=== PATIENT | female | born 1980 | race Two or more races ===

== ENCOUNTER 2024-01-22 19:06 | Emergency (ER) | payer MEDICAID, SELFPAY ==
[2024-01-22 19:29] VITALS: BP 135/87; PULSE 78; RESP 17; TEMP 36.6; O2SAT 97; BMI 43.9
--- NOTE | 2024-01-22 19:52 | EDNOTE_ITS ---
ED Headache RME/HPI General Chief Complaint: Headache Stated Complaint: Headache X 15 days Time Seen by Provider: 01/22/24 19:43 Arrival date/time: 01/22/24 19:06 43F with history of migraines presents to ED with migraine for 15 days. Limitations: no limitations Related Data Home Medications ?Medication ?Instructions ?Recorded ?Confirmed loratadine 10 mg tablet (Claritin) 10 mg PO QDAY PRN Allergic Symptoms 05/08/23 05/08/23 Previous Rx's ?Medication ?Instructions ?Recorded sumatriptan succinate 50 mg tablet See Rx Instructions PO .COMPLEX 11/07/22 (Imitrex) #10 tabs Allergies Allergy/AdvReac Type Severity Reaction Status Date / Time No Known Allergies Allergy Verified 11/28/23 02:43 Review of Systems Review of Systems Systems Reviewed: All systems reviewed, normal except as documented Constitutional Constitutional: Reports system reviewed and no additional complaints, except as documented, Reports as per HPI, Denies fever(s) and Reports headache(s) ENT Ears, Nose, Mouth, and Throat: Denies disequilibrium and Reports headache(s) Cardiovascular Cardiovascular: Reports system reviewed and no additional complaints, except as documented, Denies chest pain and Denies dyspnea Respiratory Respiratory: Reports system reviewed and no additional complaints, except as documented, Denies cough and Denies dyspnea Gastrointestinal Gastrointestinal: Reports system reviewed and no additional complaints, except as documented, Denies abdominal pain, Denies nausea and Denies vomiting Neurologic Neurologic: Reports system reviewed and no additional complaints, except as documented, Denies confusion, Denies disequilibrium and Reports headache(s) Psychiatric Psychiatric: Denies confusion Past Medical History Past Medical History NEUROLOGIC: Positive Neurological Disorders and Migraine; Negative Cerebrovascular Accident or Seizures CARDIAC: Negative Cardiac Disorders, Myocardial Infarction, Hypercholesterolemia, Congestive Heart Failure or Hypertension RESPIRATORY: Negative Chronic Obstructive Pulmonary Disease (COPD) or Asthma GASTROINTESTINAL: Positive Gastrointestinal Disorders and Obesity; Negative Gastrointestinal Bleed, Hemorrhoids or Gastroesophageal Reflux Disease GENITOURINARY: Positive Genitourinary Disorders; Negative Renal Disease (reconstructed ureters) REPRODUCTIVE: Positive Previous Pregnancies MUSCULOSKELETAL: Positive Musculoskeletal Disorders ENDOCRINE: Positive Endocrine Disorders; Negative Diabetes Mellitus Type 1, Diabetes Mellitus Type 2, Hyperthyroidism or Hypothyroidism HEMATOLOGIC: Negative Blood Disorders or Sickle Cell Disease OTHER HISTORY: Negative Autoimmune Disease, Blood Transfusions, Blood Transfusion Reaction, Anesthesia Reactions, MRSA, Clostridium Difficile or Cancer Family History FAMILY HISTORY: Negative Family Respiratory Disorders, Family Cardiac Disorders, Family Gastrointestinal Problems, Family Cancer, Family Surgery or Family Anesthesia Reaction Surgical History SURGICAL: Positive Hysterectomy and Section Social History SMOKING STATUS: Never smoker SECOND HAND EXPOSURE: No SUBSTANCE USE: does not use ED Exam General Limitations: Present no limitations General appearance: Present alert and in no apparent distress Head Head exam: Present atraumatic Eye Eye exam: Present normal appearance, PERRL and EOMI ENT ENT exam: Present normal exam, normal oropharynx and mucous membranes moist Neck Neck exam: Present normal inspection, full ROM and trachea midline Chest Chest inspection: Present normal inspection and symmetric chest wall rise Respiratory Respiratory exam: Present normal lung sounds bilaterally Cardiovascular Cardiovascular exam: Present regular rate, normal rhythm and normal heart sounds Abdominal Exam Abdominal exam: Present soft and normal bowel sounds Extremities Exam Extremities exam: Present normal inspection and full ROM Back Exam Back exam: Present normal inspection and full ROM Neurological Exam Neurological exam: Present alert, oriented X3 and CN II-XII intact Psychiatric Psychiatric exam: Present normal affect and normal mood Skin Skin exam: Present warm, dry, intact and normal color Course Quality Measures none Orders Category Date Time Status Ketorolac Inj [Toradol Inj] Med 01/22/24 19:43 Discontinued 60 mg IM X1 ONE Metoclopramide [Reglan] Med 01/22/24 19:43 Discontinued 10 mg PO X1 ONE Vital Signs Vital signs: Vital Signs Temperature 97.8 F 01/22/24 19:29 Pulse Rate 78 01/22/24 19:29 Respiratory Rate 17 01/22/24 19:29 Blood Pressure 135/87 H 01/22/24 19:29 Pulse Oximetry (%) 97 01/22/24 19:29 Oxygen Delivery Method Room Air 01/22/24 19:29 O2 at 97% on RA and WNLs Headache MDM Narrative MDM Narrative:: 43F with history of migraines presents to ED with migraine for 15 days. Physical exam reveals normal pupil response and EOM. ENT clear. No neck tenderness. ROM intact. Migraine meds helped. Patient data External records reviewed:: [facility] previous records Clinical information provided by:: patient Social determinants that could affect healthcare access:: none Patient has the following chronic illnesses:: migraines How is presenting disease/condition affected by chronic disease/condition?: caused by Evaluation data The following diagnostics were reviewed and interpreted by me:: other (specify) (none) Lab and/or radiology exams considered but not ordered:: not ordered Interpretation Summary: n/a Medications / Prescriptions Medications or Prescriptions considered but not ordered:: ordered Medication administrations:: Medication Administration History Discontinued Medications Ketorolac Tromethamine (Ketorolac Inj 60 Mg/2 Ml Vial) 60 mg IM X1 ONE Stop: 01/22/24 19:44 Last Admin: 01/22/24 19:53 Dose: 60 mg Documented By: DAMARIS Metoclopramide HCl (Metoclopramide 5 Mg Tablet) 10 mg PO X1 ONE Stop: 01/22/24 19:44 Last Admin: 01/22/24 19:54 Dose: 10 mg Documented By: DAMARIS above Consultations Consultation(s) initiated? (list below): No Diagnosis Differential diagnosis headache: migraine, tension headache, subarachnoid hemorrhage, headache, meningitis, sinusitis and postconcussion syndrome Most likely diagnosis given after review of the tests above:: migraine Admission Indicated Admission indicated?: not indicated Admission Request Was there a request for admission?: No Disposition Plan Disposition Plan: Discharge Discharge Attestation Discharge Attestation: The patient and all family members were given an opportunity to ask questions and understood the discharge instructions. Discharge instructions specifically effects, indications for sooner follow up or return to the emergency department, and the expected course of current diagnosis. Patient condition: Stable Discharge Plan Plan Patient Disposition: HOME (Self Care) Disposition Comment: Stable Prescriptions/Referrals Prescriptions/Med Rec: No Action sumatriptan succinate [Imitrex] 50 mg tablet See Rx Instructions .ROUTE .COMPLEX Qty: 10 0RF Rx Instructions: take 1 tab at onset of headache; if no relief may repeat 1 tab after at least 2 hrs; max = 4 tabs/24 hr loratadine [Claritin] 10 mg Tablet 10 mg PO QDAY PRN (Reason: Allergic Symptoms) Hold Instructions: Resume on 05/09/23. Referrals: Stephan Pedraza PA-C [Primary Care Provider] - In 1 week Problem List Clinical Impression: Migraine Patient/Caregiver Discharge Instructions Education Materials: ED Headache, Migraine, Classic Additional Instructions: Please follow-up with PCP within 24-48 hours and return immediately if symptoms worsen. Print Language: Tuvaluan Stand Alone Forms: Patient Portal Info Letter ANTON/BUSTER Supervising Physician ANTON/BUSTER Supervising Physician: Dr. Garcia
[2024-01-22] MEDS: KETOROLAC INJ 60 MG/2 ML VIAL IM (19:53)
[2024-01-22] MEDS: METOCLOPRAMIDE 5 MG TABLET 10 MG PO (19:54)
== END 2024-01-22 21:05 | disposition home or self-care (01) ==
PROVIDERS: Emergency Provider Emergency Medicine; PCP Family Medicine
DX: G43.909 Migraine, unspecified, not intractable, without status migrainosus (principal)
CPT/HCPCS: 96372; 99283; J1885; A9270

== ENCOUNTER 2024-06-17 23:30 | Emergency (ER) | payer MEDICAID, SELFPAY ==
[2024-06-17 23:31] VITALS: BMI 40.2
[2024-06-17 23:40] VITALS: BP 122/87; PULSE 86; RESP 18; TEMP 36.6; O2SAT 95
[2024-06-18] MEDS: FAMOTIDINE 20 MG TABLET 40 MG PO (00:04)
[2024-06-18] MEDS: MG HYD/AL HYD/SIME (Maalox Reg) SUSP 30 ML UDC PO (00:04)
[2024-06-18] MEDS: ONDANSETRON ODT 4 MG TABRAP PO (00:04)
--- NOTE | 2024-06-18 01:43 | EKG_ITS ---
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
[2024-06-18 01:57] VITALS: BP 123/82; PULSE 65; RESP 16; TEMP 36.6; O2SAT 96
[2024-06-18 02:37] LABS: Basophils % (Auto) 1 % (0-2.5); Eosinophils # (Auto) 0.3 Thou/mm3 (0.0-0.5); Eosinophils % (Auto) 5 % (0-10); Hematocrit 42.4 % (36.0-46.0); Hemoglobin 14.3 g/dL (12.0-16.0); Immature Granulocytes % (Auto) 0 % (0-0); Immature Granulocytes Auto 0.02 Thou/mm3 (0.00-0.00); Lymphocytes # (Auto) 1.9 Thou/mm3 (1.0-4.8); Lymphocytes % (Auto) 29 % (10-50); Mean Corpuscular HGB Conc 33.7 g/dl (31.0-37.0); Mean Corpuscular Hemoglobin 30.1 pg (25.0-35.0); Mean Corpuscular Volume 89 fL (80-100); Monocytes # (Auto) 0.6 Thou/mm3 (0.0-0.8); Monocytes % (Auto) 9 % (0-12); Neutrophils # (Auto) 3.7 Thou/mm3 (1.8-7.7); Neutrophils % (Auto) 56 % (37-80); Nucleated Red Blood Cell % 0 /100 WBC (0); Platelet Count 248 Thou/mm3 (140-440); RDW Standard Deviation 43.4 fL (36.4-46.3); Red Blood Count 4.75 Miln/mm3 (4.00-5.20); White Blood Count 6.5 Thou/mm3 (3.6-11.0)
[2024-06-18 02:49] LABS: HCG Qualitative,Urine Negative
[2024-06-18 03:00] LABS: Alanine Aminotransferase 36 U/L (10-49); Albumin, Serum 4.6 gm/dL (3.5-5.0); Albumin/Globulin Ratio 1.5 (1.2-2.2); Alkaline Phosphatase 79 U/L (46-116); Anion Gap 11 (7-16); Aspartate Amino Transferase 19 U/L (0-34); BUN/Creatinine Ratio 22 Ratio (12-20); Bilirubin,Total 0.5 mg/dL (0.3-1.2); Blood Urea Nitrogen 13 mg/dL (9-23); Calcium 9.3 mg/dL (8.3-10.6); Calcium (Corrected) 9.3 mg/dL (8.5-10.1); Carbon Dioxide 26.1 mMol/L (20.0-31.0); Chloride 105 mMol/L (98-107); Creatinine (Component) 0.6 mg/dL (0.6-1.3); Estimated Creatinine Clearance 134.9 mL/min (>60); Globulin 3.1 gm/dL (2.3-3.5); Glucose 131 mg/dL (74-106); Lipase 45 U/L (12-53); Osmolality,Calculated 285 (275-295); Potassium 4.3 mMol/L (3.4-5.1); Sodium 142 mMol/L (136-145); Total Protein 7.7 gm/dL (5.7-8.2); Troponin I < 0.002 ng/mL (0.0-0.045); eGFR > 60 See Note
--- NOTE | 2024-06-18 03:15 | XR_ITS ---
Examination: CT abdomen with intravenous contrast CT pelvis with intravenous contrast 2-D coronal reconstructions 2-D sagittal reconstructions Date and time of exam:June 18, 2024 at 0413 hours Comparison February 13, 2023 INDICATIONS: Epigastric pain nausea vomiting beginning 2 days ago. CTDI: vol (mGy) 16 DLP: (mGycm) 795 Technique: Multiple axial sections of the abdomen and pelvis have been obtained. 64 slice high-resolution scanner used. 3 mm axial sections have been obtained, post intravenous injection 60 cc [id number] 2-D sagittal, coronal reconstructions obtained. Low dose protocols were performed. One or more of the following dose reduction techniques were used; automated exposure control, adjustment of the mA and/or KV according to patient size, use of iterative reconstruction technique. Findings: Diffuse fatty infiltration throughout the liver, irregular liver contour Absent gallbladder Spleen not enlarged No pancreatic mass 18 mm indeterminate left adrenal nodule Minimal wall thickening right pelvicalyceal system and right ureter no ureteral calculi. Normal appendix. Intact bladder. Absent uterus, no pelvic mass Moderate osteopenia IMPRESSION: 18 mm indeterminate left adrenal nodule, recommend elective MRI abdomen adrenal glands follow up, repeat and postcontrast, adrenal gland protocol Suspicious for right urinary tract infection
[2024-06-18 03:25] VITALS: BP 129/85; PULSE 65; RESP 18; TEMP 36.8; O2SAT 100
--- NOTE | 2024-06-18 04:39 | EDNOTE_ITS ---
<Statement entered by Cara Vaughan MD - 06/18/24 19:04> As co-signing physician, I was present and available for consult prn. I concur with the plan and care as documented by the midlevel provider. ED Abdominal Pain RME/HPI General Chief Complaint: Abdominal Pain Stated complaint: EPIGASTRIC PAIN RADIATING TO BACK Time seen by provider: 06/17/24 23:48 Arrival date/time: 06/17/24 23:30 44F with history of cholecystectomy presents to ED with several days of burning epigastric pain and N/V that radiates to back. Limitations: no limitations Related Data Home Medications ?Medication ?Instructions ?Recorded ?Confirmed loratadine 10 mg tablet (Claritin) 10 mg PO QDAY PRN A llergic Symptoms 05/08/23 05/08/23 Held on 05/08/23. Instructions: Resume on 05/09/23. Previous Rx's ?Medication ?Instructions ?Recorded sumatriptan succinate 50 mg tablet See Rx Instructions PO .COMPLEX 11/07/22 (Imitrex) #10 tabs nitrofurantoin 100 mg PO Q12H 5 days #10 ca ps 06/18/24 monohydrate/macrocrystals 100 mg capsule (Macrobid) Allergies Allergy/AdvReac Type Severity Reaction Status Date / Time No Known Allergies Allergy Verified 06/17/24 23:31 Review of Systems Review of Systems Systems Reviewed: All systems reviewed, normal except as documented Constitutional Constitutional: Reports system reviewed and no additional complaints, except as documented, Denies fever(s) and Denies headache(s) ENT Ears, Nose, Mouth, and Throat: Denies disequilibrium and Denies headache(s) Cardiovascular Cardiovascular: Reports system reviewed and no additional complaints, except as documented, Denies chest pain and Denies dyspnea Respiratory Respiratory: Reports system reviewed and no additional complaints, except as documented, Denies cough and Denies dyspnea Gastrointestinal Gastrointestinal: Reports system reviewed and no additional complaints, except as documented, Reports as per HPI, Reports abdominal pain, Reports nausea and Reports vomiting Neurologic Neurologic: Reports system reviewed and no additional complaints, except as documented, Denies confusion, Denies disequilibrium and Denies headache(s) Psychiatric Psychiatric: Denies confusion Past Medical History Past Medical History NEUROLOGIC: Positive Neurological Disorders and Migraine; Negative Cerebrovascular Accident or Seizures CARDIAC: Negative Cardiac Disorders, Myocardial Infarction, Hypercholesterolemia, Congestive Heart Failure or Hypertension RESPIRATORY: Negative Chronic Obstructive Pulmonary Disease (COPD) or Asthma GASTROINTESTINAL: Positive Gastrointestinal Disorders and Obesity; Negative Gastrointestinal Bleed, Hemorrhoids or Gastroesophageal Reflux Disease GENITOURINARY: Positive Genitourinary Disorders; Negative Renal Disease REPRODUCTIVE: Positive Previous Pregnancies MUSCULOSKELETAL: Positive Musculoskeletal Disorders ENDOCRINE: Positive Endocrine Disorders; Negative Diabetes Mellitus Type 1, Diabetes Mellitus Type 2, Hyperthyroidism or Hypothyroidism HEMATOLOGIC: Negative Blood Disorders or Sickle Cell Disease OTHER HISTORY: Negative Autoimmune Disease, Blood Transfusions, Blood Transfusion Reaction, Anesthesia Reactions, MRSA, Clostridium Difficile or Cancer Family History FAMILY HISTORY: Negative Family Respiratory Disorders, Family Cardiac Disorders, Family Gastrointestinal Problems, Family Cancer, Family Surgery or Family Anesthesia Reaction Surgical History SURGICAL: Positive Hysterectomy and Section Social History SMOKING STATUS: Never smoker SECOND HAND EXPOSURE: No SUBSTANCE USE: does not use ED Exam General Limitations: Present no limitations General appearance: Present alert and in no apparent distress Head Head exam: Present atraumatic Eye Eye exam: Present normal appearance, PERRL and EOMI ENT ENT exam: Present normal exam, normal oropharynx and mucous membranes moist Neck Neck exam: Present normal inspection, full ROM and trachea midline Chest Chest inspection: Present normal inspection and symmetric chest wall rise Respiratory Respiratory exam: Present normal lung sounds bilaterally Cardiovascular Cardiovascular exam: Present regular rate, normal rhythm and normal heart sounds Abdominal Exam Abdominal exam: Present soft and normal bowel sounds Abdominal tenderness: Present epigastrium and mild Extremities Exam Extremities exam: Present normal inspection and full ROM Back Exam Back exam: Present normal inspection and full ROM Neurological Exam Neurological exam: Present alert, oriented X3 and CN II-XII intact Psychiatric Psychiatric exam: Present normal affect and normal mood Skin Skin exam: Present warm, dry, intact and normal color Course Quality Measures none Orders Category Date Time Status CT Screening NOW Care 06/18/24 03:15 Completed EKG (ED ONLY) *Do not use* NOW Care 06/18/24 01:44 Completed Insert IV NOW Care 06/18/24 03:[address] abdomen pelvis w con Stat Exams 06/18/24 03:15 Completed EKG (ED Only) Stat Exams 06/18/24 01:43 Draft CBC Stat Lab 06/18/24 02:14 Completed CMP [Comprehensive Metabolic Panel] Stat Lab 06/18/24 02:14 Completed HCG Qualitative,Urine Stat Lab 06/18/24 02:15 Completed Lipase Stat Lab 06/18/24 02:14 Completed Troponin I Stat Lab 06/18/24 02:14 Completed Famotidine [Pepcid] Med 06/17/24 23:48 Discontinued 40 mg PO X1 ONE Ondansetron Odt [Zofran Odt] Med 06/17/24 23:48 Discontinued 4 mg PO X1 ONE mg Hyd/Al Hyd/Mil Susp [Maalox Susp] Med 06/17/24 23:48 Discontinued 30 ml PO X1 ONE Vital Signs Vital signs: Vital Signs Temperature 97.9 F 06/17/24 23:40 Pulse Rate 86 06/17/24 23:40 Respiratory Rate 18 06/17/24 23:40 Blood Pressure 122/87 H 06/17/24 23:40 Pulse Oximetry (%) 95 06/17/24 23:40 Oxygen Delivery Method Room Air 06/17/24 23:40 O2 at 95% on RA and WNLs Abdominal Pain MDM MDM Narrative MDM Narrative:: 44F with history of cholecystectomy presents to ED with several days of burning epigastric pain and N/V that radiates to back. Physical exam reveals mild epigastric tenderness. Patient is afebrile, calm, and alert. No improvement with GI cocktail. No leukocytosis. CMP unremarkable. Lipase normal. EKG is NSR. Trop normal. Patient wants CT. Care signed out to colleague pending CT read and dispo. Patient data External records reviewed:: [facility] previous records Clinical information provided by:: patient Social determinants that could affect healthcare access:: none Patient has the following chronic illnesses:: cholecystectomy How is presenting disease/condition affected by chronic disease/condition?: exacerbated by Evaluation data The following diagnostics were reviewed and interpreted by me:: lab results and radiology exam(s) Lab and/or radiology exams considered but not ordered:: ordered Interpretation Summary: above Medications / Prescriptions Medications or Prescriptions considered but not ordered:: ordered Medication administrations:: Medication Administration History Discontinued Medications Al Hydrox/Mg Hydrox/Simethicone (Mg Hyd/Al Hyd/Mil (Maalox Reg) Susp 30 Ml Udc) 30 ml PO X1 ONE Stop: 06/17/24 23:49 Last Admin: 06/18/24 00:04 Dose: 30 ml Documented By: SIERRA Famotidine (Famotidine 20 Mg Tablet) 40 mg PO X1 ONE Stop: 06/17/24 23:49 Last Admin: 06/18/24 00:04 Dose: 40 mg Documented By: SIERRA Ondansetron HCl (Ondansetron Odt 4 Mg Tabrap) 4 mg PO X1 ONE; Protocol Stop: 06/17/24 23:49 Last Admin: 06/18/24 00:04 Dose: 4 mg Documented By: SIERRA above Consultations Consultation(s) initiated? (list below): No Diagnosis Differential diagnosis abdominal pain: abdominal pain, acute appendicitis, calculus of kidney, constipation, diverticulitis, endometriosis, gastroenteritis, pancreatitis and small bowel obstruction Most likely diagnosis given after review of the tests above:: UTI Admission Indicated Admission indicated?: not indicated Admission Request Was there a request for admission?: No Disposition Plan Disposition Plan: Discharge Discharge Attestation Discharge Attestation: The patient and all family members were given an opportunity to ask questions and understood the discharge instructions. Discharge instructions specifically effects, indications for sooner follow up or return to the emergency department, and the expected course of current diagnosis. Patient condition: Stable Discharge Plan Plan Patient Disposition: HOME (Self Care) Discharge Disposition comment: Stable Prescriptions/Referrals Prescriptions/Med Rec: New nitrofurantoin monohyd/m-cryst [Macrobid] 100 mg capsule 100 mg PO Q12H 5 Days Qty: 10 0RF Rx Instructions: must administer with a meal/food No Action sumatriptan succinate [Imitrex] 50 mg tablet See Rx Instructions .ROUTE .COMPLEX Qty: 10 0RF Rx Instructions: take 1 tab at onset of headache; if no relief may repeat 1 tab after at least 2 hrs; max = 4 tabs/24 hr loratadine [Claritin] 10 mg Tablet 10 mg PO QDAY PRN (Reason: Allergic Symptoms) Referrals: Bijan Still MD [Primary Care Provider] - In 1 week Problem List Clinical Impression: Urinary tract infection Patient/Caregiver Discharge Instructions Education Materials: ED CYSTITIS Female Adult Additional Instructions: Please follow-up with your primary care provider in the next [address] of your abdomen and pelvis showed a urinary tract infection. The CT of your abdomen and pelvis also showed an 18 mm nodule on your adrenal gland. Please follow-up with your primary care provider for further management of this nodule. For any evidence of worsening signs or symptoms return the emergency room immediately Print Language: [place] Stand Alone Forms: Xiao Award Info., Patient Portal Info Letter ANTON/STRIP MILL OPERATOR Supervising Physician PA/STRIP MILL OPERATOR Supervising Physician: Dr. Edwards
--- NOTE | 2024-06-18 05:52 | PRELIM_ITS ---
CT scan of the abdomen and pelvis with intravenous contrast (axial sections with sagittal and coronal reformats). June 18, 2024 0413 hours Clinical History: Epigastric pain and N/V Comparison: None Findings: There is fatty infiltration of the liver. There is slight nodular contour of the liver in keeping with cirrhosis. Gallbladder is surgically absent. The spleen, pancreas, adrenals and left kidney are unremarkable. There is mild right hydronephrosis and the right ureter appears abnormally insert along the anterior aspect of the urinary bladder, possibly this representing postsurgical change to the right ureteral insertion on the urinary bladder. Uterus is surgically absent. There is underdistention of the stomach which limits evaluation. There is no bowel obstruction. There are colonic diverticula without evidence of diverticulitis. Appendix is normal. Tiny fat-containing periumbilical hernia is noted. There is no abdominal or pelvic lymphadenopathy. There is subsegmental atelectasis within the lung bases. There is no acute osseous abnormality. Impression: 1. Fatty liver. Possible cirrhosis. 2. Mild right hydronephrosis. No renal or ureteral calculus. The right ureter appears to abnormally insert along the anterior aspect of the urinary bladder which may represent postsurgical change. Recommend clinical correlation. 3. Prior cholecystectomy and hysterectomy. 4. No bowel obstruction. Colonic diverticula without evidence of diaper to light Speed normal appendix. Report Electronically Signed By: Karlos Colin 06/18/2024 5:51:38 AM [EST]
--- NOTE | 2024-06-18 06:46 | EDNOTE_ITS ---
ED Abdominal Pain RME/HPI General Chief Complaint: Abdominal Pain Stated complaint: EPIGASTRIC PAIN RADIATING TO BACK Time seen by provider: 06/17/24 23:48 Arrival date/time: 06/17/24 23:30 44-year-old female with no known medical history presents to the emergency room with a chief complaint of epigastric 7 out of 10 abdominal pain that radiates to her back x 2 days Source: patient Mode of arrival: ambulatory Limitations: no limitations Related Data Home Medications ?Medication ?Instructions ?Recorded ?Confirmed loratadine 10 mg tablet (Claritin) 10 mg PO QDAY PRN A llergic Symptoms 05/08/23 05/08/23 Held on 05/08/23. Instructions: Resume on 05/09/23. Previous Rx's ?Medication ?Instructions ?Recorded sumatriptan succinate 50 mg tablet See Rx Instructions PO .COMPLEX 11/07/22 (Imitrex) #10 tabs nitrofurantoin 100 mg PO Q12H 5 days #10 ca ps 06/18/24 monohydrate/macrocrystals 100 mg capsule (Macrobid) Allergies Allergy/AdvReac Type Severity Reaction Status Date / Time No Known Allergies Allergy Verified 06/17/24 23:31 Review of Systems Review of Systems Systems Reviewed: All systems reviewed, normal except as documented Constitutional Constitutional: Reports system reviewed and no additional complaints, except as documented, Denies fatigue, Denies fever(s), Denies headache(s) and Denies weakness Eyes Eyes: Reports system reviewed and no additional complaints, except as documented, Denies blurry vision and Denies change in vision ENT Ears, Nose, Mouth, and Throat: Reports system reviewed and no additional complaints, except as documented, Denies otalgia, Denies headache(s), Denies nasal congestion, Denies throat swelling and Denies vertigo Cardiovascular Cardiovascular: Reports system reviewed and no additional complaints, except as documented, Denies chest pain, Denies dyspnea and Denies dyspnea on exertion Respiratory Respiratory: Reports system reviewed and no additional complaints, except as documented, Denies chest congestion, Denies cough, Denies dyspnea, Denies dyspnea on exertion and Denies wheezing Gastrointestinal Gastrointestinal: Reports system reviewed and no additional complaints, except as documented, Denies abdominal pain, Denies cramping, Denies nausea and Denies vomiting Genitourinary Genitourinary: Reports system reviewed and no additional complaints, except as documented Musculoskeletal Musculoskeletal: Reports system reviewed and no additional complaints, except as documented and Denies back pain Integumentary/Breasts Skin/Breast: Reports system reviewed and no additional complaints, except as documented and Denies wounds Neurologic Neurologic: Reports system reviewed and no additional complaints, except as documented, Denies confusion, Denies headache(s), Denies lack of coordination, Denies vertigo and Denies weakness Psychiatric Psychiatric: Reports system reviewed and no additional complaints, except as documented, Denies anxiety, Denies confusion, Denies depression, Denies paranoia, Denies suicidal ideation and Denies tactile hallucinations Endocrine Endocrine: Reports system reviewed and no additional complaints, except as documented and Denies fatigue Hematologic/Lymphatic Hematologic/Lymphatic: Reports system reviewed and no additional complaints, except as documented and Denies lymphadenopathy Allergic/Immunologic Allergic/Immunologic: Reports system reviewed and no additional complaints, except as documented, Denies throat swelling, Denies urticaria and Denies wheezing ED Exam General Limitations: Present no limitations General appearance: Present alert and in no apparent distress Head Head exam: Present atraumatic Eye Eye exam: Present normal appearance, PERRL and EOMI ENT ENT exam: Present normal exam, normal oropharynx and mucous membranes moist Neck Neck exam: Present normal inspection, full ROM and trachea midline Chest Chest inspection: Present normal inspection and symmetric chest wall rise Respiratory Respiratory exam: Present normal lung sounds bilaterally Cardiovascular Cardiovascular exam: Present regular rate, normal rhythm and normal heart sounds Abdominal Exam Abdominal exam: Present soft, tenderness and normal bowel sounds; Absent Coombs's sign or tenderness at McBurney's Point Abdominal tenderness: Present epigastrium and mild Extremities Exam Extremities exam: Present normal inspection and full ROM Back Exam Back exam: Present normal inspection, full ROM and tenderness Neurological Exam Neurological exam: Present alert, oriented X3 and CN II-XII intact Psychiatric Psychiatric exam: Present normal affect and normal mood Skin Skin exam: Present warm, dry, intact and normal color Course Quality Measures none Orders Category Date Time Status CT Screening NOW Care 06/18/24 03:15 Active EKG (ED ONLY) *Do not use* NOW Care 06/18/24 01:44 Completed Insert IV NOW Care 06/18/24 03:[address] abdomen pelvis w con Stat Exams 06/18/24 03:15 Completed EKG (ED Only) Stat Exams 06/18/24 01:43 Ordered CBC Stat Lab 06/18/24 02:14 Completed CMP [Comprehensive Metabolic Panel] Stat Lab 06/18/24 02:14 Completed HCG Qualitative,Urine Stat Lab 06/18/24 02:15 Completed Lipase Stat Lab 06/18/24 02:14 Completed Troponin I Stat Lab 06/18/24 02:14 Completed Famotidine [Pepcid] Med 06/17/24 23:48 Discontinued 40 mg PO X1 ONE Ondansetron Odt [Zofran Odt] Med 06/17/24 23:48 Discontinued 4 mg PO X1 ONE mg Hyd/Al Hyd/Mil Susp [Maalox Susp] Med 06/17/24 23:48 Discontinued 30 ml PO X1 ONE Vital Signs Vital signs: Vital Signs Temperature 97.9 F 06/17/24 23:40 Pulse Rate 86 06/17/24 23:40 Respiratory Rate 18 06/17/24 23:40 Blood Pressure 122/87 H 06/17/24 23:40 Pulse Oximetry (%) 95 06/17/24 23:40 Oxygen Delivery Method Room Air 06/17/24 23:40 O2 saturation 95% within normal limits Abdominal Pain MDM MDM Narrative MDM Narrative:: 44-year-old female with no known medical history presents to the emergency room with a chief complaint of epigastric 7 out of 10 abdominal pain that radiates to her back x 2 days Patient is hemodynamically stable and in no apparent distress. The patient is afebrile not tachycardic not tachypneic Physical examination shows 7 out of 10 epigastric abdominal pain that radiates to her mid back. A CT of the abdomen and pelvis was completed and was negative for any acute findings. There was an 18 mm incidental finding to the adrenal gland. The patient was educated to follow-up with her primary care provider for further management of this incidental finding. CT also shows suspicious for urinary tract infection. Antibiotics are sent to the patient's pharmacy Patient was discharged and educated to follow-up with primary care provider in the next 24 to 48 hours and return to the emergency room for any evidence of worsening signs or symptoms Patient data External records reviewed:: [facility] previous records Clinical information provided by:: patient Social determinants that could affect healthcare access:: none Patient has the following chronic illnesses:: No chronic illness How is presenting disease/condition affected by chronic disease/condition?: no chronic disease Evaluation data The following diagnostics were reviewed and interpreted by me:: lab results and radiology exam(s) Lab and/or radiology exams considered but not ordered:: Labs and radiology exams considered and ordered Interpretation Summary: CT abdomen and pelvis-Findings: Diffuse fatty infiltration throughout the liver, irregular liver contour Absent gallbladder Spleen not enlarged No pancreatic mass 18 mm indeterminate left adrenal nodule Minimal wall thickening right pelvicalyceal system and right ureter no ureteral calculi. Normal appendix. Intact bladder. Absent uterus, no pelvic mass Moderate osteopenia IMPRESSION: 18 mm indeterminate left adrenal nodule, recommend elective MRI abdomen adrenal glands follow up, repeat and postcontrast, adrenal gland protocol Suspicious for right urinary tract infection Medications / Prescriptions Medications or Prescriptions considered but not ordered:: Medication given Medication administrations:: Medication Administration History Discontinued Medications Al Hydrox/Mg Hydrox/Simethicone (Mg Hyd/Al Hyd/Mil (Maalox Reg) Susp 30 Ml Udc) 30 ml PO X1 ONE Stop: 06/17/24 23:49 Last Admin: 06/18/24 00:04 Dose: 30 ml Documented By: SIERRA Famotidine (Famotidine 20 Mg Tablet) 40 mg PO X1 ONE Stop: 06/17/24 23:49 Last Admin: 06/18/24 00:04 Dose: 40 mg Documented By: SIERRA Ondansetron HCl (Ondansetron Odt 4 Mg Tabrap) 4 mg PO X1 ONE; Protocol Stop: 06/17/24 23:49 Last Admin: 06/18/24 00:04 Dose: 4 mg Documented By: SIERRA Medication given Consultations Consultation(s) initiated? (list below): No Diagnosis Differential diagnosis abdominal pain: abdominal pain, acute appendicitis, gastroenteritis, pancreatitis, small bowel obstruction and other (Gastritis) Most likely diagnosis given after review of the tests above:: Gastritis Admission Indicated Admission indicated?: not indicated Admission Request Was there a request for admission?: No Disposition Plan Disposition Plan: Discharge Discharge Attestation Discharge Attestation: The patient and all family members were given an opportunity to ask questions and understood the discharge instructions. Discharge instructions specifically effects, indications for sooner follow up or return to the emergency department, and the expected course of current diagnosis. Patient condition: Stable Discharge Plan Plan Patient Disposition: HOME (Self Care) Discharge Disposition comment: Stable Prescriptions/Referrals Prescriptions/Med Rec: New nitrofurantoin monohyd/m-cryst [Macrobid] 100 mg capsule 100 mg PO Q12H 5 Days Qty: 10 0RF Rx Instructions: must administer with a meal/food No Action sumatriptan succinate [Imitrex] 50 mg tablet See Rx Instructions .ROUTE .COMPLEX Qty: 10 0RF Rx Instructions: take 1 tab at onset of headache; if no relief may repeat 1 tab after at least 2 hrs; max = 4 tabs/24 hr loratadine [Claritin] 10 mg Tablet 10 mg PO QDAY PRN (Reason: Allergic Symptoms) Referrals: Bijan Still MD [Primary Care Provider] - In 1 week Problem List Clinical Impression: Urinary tract infection Patient/Caregiver Discharge Instructions Education Materials: ED CYSTITIS Female Adult Additional Instructions: Please follow-up with your primary care provider in the next [address] of your abdomen and pelvis showed a urinary tract infection. The CT of your abdomen and pelvis also showed an 18 mm nodule on your adrenal gland. Please follow-up with your primary care provider for further management of this nodule. For any evidence of worsening signs or symptoms return the emergency room immediately Print Language: Irish Stand Alone Forms: [employer] Award Info., Patient Portal Info Letter PA/TEACHER LIP READING Supervising Physician PA/BUSTER Supervising Physician: Dr. Edwards
[2024-06-18 06:54] VITALS: BP 122/72; PULSE 76; RESP 16; TEMP 36.7; O2SAT 98
== END 2024-06-18 06:55 | disposition home or self-care (01) ==
PROVIDERS: Physician Assistant; Emergency Provider Emergency Medicine; PCP Family Medicine
DX: N39.0 Urinary tract infection, site not specified (principal); E27.8 Other specified disorders of adrenal gland; R10.13 Epigastric pain
CPT/HCPCS: 36415; 74177; 80053; 81025; 83690; 84484; 85025; 93005; 99285; A4649; Q0162; Q9967; A9270

== ENCOUNTER 2024-09-07 18:16 | Emergency (ER) | payer MEDICAID, SELFPAY ==
[2024-09-07 18:40] VITALS: BP 111/73; PULSE 62; RESP 16; TEMP 36.9; O2SAT 97; BMI 39.9
--- NOTE | 2024-09-07 19:12 | EDNOTE_ITS ---
<Statement entered by Cara Vaughan MD - 09/07/24 20:07> As co-signing physician, I was present and available for consult prn. I concur with the plan and care as documented by the midlevel provider. ED Skin Abcess FB-RME/HPI General Chief complaint: General Adult/Misc Complain Stated complaint: Hemorrhoids X 8 days Time Seen by Provider: 09/07/24 19:03 Arrival date/time: 09/07/24 18:16 44F with history of hemorrhoids presents to ED with flare of 1 week. Patient was prescribed a steroid cream, but wants something for her pain. There is some bleeding with it. Limitations: no limitations Related Data Home Medications ?Medication ?Instructions ?Recorded ?Confirmed loratadine 10 mg tablet (Claritin) 10 mg PO QDAY PRN A llergic Symptoms 05/08/23 05/08/23 Held on 05/08/23. Instructions: Resume on 05/09/23. Previous Rx's ?Medication ?Instructions ?Recorded sumatriptan succinate 50 mg tablet See Rx Instructions PO .COMPLEX 11/07/22 (Imitrex) #10 tabs lidocaine 5 % topical ointment 1 applic topical BID HI N pain #30 09/07/24 grams Allergies Allergy/AdvReac Type Severity Reaction Status Date / Time No Known Allergies Allergy Verified 09/07/24 18:19 Review of Systems Review of Systems Systems Reviewed: All systems reviewed, normal except as documented Constitutional Constitutional: Reports system reviewed and no additional complaints, except as documented, Denies fever(s) and Denies headache(s) ENT Ears, Nose, Mouth, and Throat: Denies disequilibrium and Denies headache(s) Cardiovascular Cardiovascular: Reports system reviewed and no additional complaints, except as documented, Denies chest pain and Denies dyspnea Respiratory Respiratory: Reports system reviewed and no additional complaints, except as documented, Denies cough and Denies dyspnea Gastrointestinal Gastrointestinal: Reports system reviewed and no additional complaints, except as documented, Denies abdominal pain, Denies nausea and Denies vomiting Neurologic Neurologic: Reports system reviewed and no additional complaints, except as documented, Denies confusion, Denies disequilibrium and Denies headache(s) Psychiatric Psychiatric: Denies confusion Past Medical History Past Medical History NEUROLOGIC: Positive Neurological Disorders and Migraine; Negative Cerebrovascular Accident or Seizures CARDIAC: Negative Cardiac Disorders, Myocardial Infarction, Hypercholesterolemia, Congestive Heart Failure or Hypertension RESPIRATORY: Negative Chronic Obstructive Pulmonary Disease (COPD) or Asthma GASTROINTESTINAL: Positive Gastrointestinal Disorders and Obesity; Negative Gastrointestinal Bleed, Hemorrhoids or Gastroesophageal Reflux Disease GENITOURINARY: Positive Genitourinary Disorders; Negative Renal Disease REPRODUCTIVE: Positive Previous Pregnancies MUSCULOSKELETAL: Positive Musculoskeletal Disorders ENDOCRINE: Positive Endocrine Disorders; Negative Diabetes Mellitus Type 1, Diabetes Mellitus Type 2, Hyperthyroidism or Hypothyroidism HEMATOLOGIC: Negative Blood Disorders or Sickle Cell Disease OTHER HISTORY: Negative Autoimmune Disease, Blood Transfusions, Blood Transfusion Reaction, Anesthesia Reactions, MRSA, Clostridium Difficile or Cancer Family History FAMILY HISTORY: Negative Family Respiratory Disorders, Family Cardiac Disorders, Family Gastrointestinal Problems, Family Cancer, Family Surgery or Family Anesthesia Reaction Surgical History SURGICAL: Positive Hysterectomy and Section Social History SMOKING STATUS: Never smoker SECOND HAND EXPOSURE: No SUBSTANCE USE: does not use ED Exam General Limitations: Present no limitations General appearance: Present alert and in no apparent distress Head Head exam: Present atraumatic Eye Eye exam: Present normal appearance, PERRL and EOMI ENT ENT exam: Present normal exam, normal oropharynx and mucous membranes moist Neck Neck exam: Present normal inspection, full ROM and trachea midline Chest Chest inspection: Present normal inspection and symmetric chest wall rise Respiratory Respiratory exam: Present normal lung sounds bilaterally Cardiovascular Cardiovascular exam: Present regular rate, normal rhythm and normal heart sounds Abdominal Exam Abdominal exam: Present soft and normal bowel sounds Extremities Exam Extremities exam: Present normal inspection and full ROM Back Exam Back exam: Present normal inspection and full ROM Neurological Exam Neurological exam: Present alert, oriented X3 and CN II-XII intact Psychiatric Psychiatric exam: Present normal affect and normal mood Skin Skin exam: Present warm, dry, intact and normal color Course Quality Measures none Vital Signs Vital signs: Vital Signs Temperature 98.5 F 09/07/24 18:40 Pulse Rate 62 09/07/24 18:40 Respiratory Rate 16 09/07/24 18:40 Blood Pressure 111/73 09/07/24 18:40 Pulse Oximetry (%) 97 09/07/24 18:40 Oxygen Delivery Method Room Air 09/07/24 18:40 O2 at 97% on RA and WNLs Skin / Abscess / Foreign Body MDM Narrative MDM Narrative:: 44F with history of hemorrhoids presents to ED with flare of 1 week. Patient was prescribed a steroid cream, but wants something for her pain. There is some bleeding with it. Physical exam reveals uncomfortable female. Patient declines rectal exam. Patient is afebrile, calm, and alert. Meds and funeral pre arrangement counselor given. Patient data External records reviewed:: [facility] previous records Clinical information provided by:: patient Social determinants that could affect healthcare access:: none Patient has the following chronic illnesses:: none How is presenting disease/condition affected by chronic disease/condition?: no chronic disease Evaluation data The following diagnostics were reviewed and interpreted by me:: other (specify) (none) Lab and/or radiology exams considered but not ordered:: not ordered Interpretation Summary: n/a Medications / Prescriptions Medications or Prescriptions considered but not ordered:: not ordered Medication administrations:: n/a Consultations Consultation(s) initiated? (list below): No Diagnosis Skin/Abscess Differential Diagnosis: abscess of skin or subcutaneous tissue, viral exanthem, dermatophytosis, urticaria, herpes zoster, allergic reaction to drug, cellulitis, eczema, insect bites, impetigo, contact dermatitis and other (hemorrhoids) Most likely diagnosis given after review of the tests above:: hemorrhoids Admission Indicated Admission indicated?: not indicated Admission Request Was there a request for admission?: No Disposition Plan Disposition Plan: Discharge Discharge Attestation Discharge Attestation: The patient and all family members were given an opportunity to ask questions and understood the discharge instructions. Discharge instructions specifically effects, indications for sooner follow up or return to the emergency department, and the expected course of current diagnosis. Patient condition: Stable Discharge Plan Plan Patient Disposition: HOME (Self Care) Discharge Disposition comment: Stable Prescriptions/Referrals Prescriptions/Med Rec: New lidocaine 5 % ointment 1 applic topical BID PRN (Reason: pain) Qty: 30 0RF No Action sumatriptan succinate [Imitrex] 50 mg tablet See Rx Instructions .ROUTE .COMPLEX Qty: 10 0RF Rx Instructions: take 1 tab at onset of headache; if no relief may repeat 1 tab after at least 2 hrs; max = 4 tabs/24 hr loratadine [Claritin] 10 mg Tablet 10 mg PO QDAY PRN (Reason: Allergic Symptoms) Problem List Clinical Impression: Bleeding hemorrhoid Patient/Caregiver Discharge Instructions Education Materials: ED Hemorrhoids Additional Instructions: Please follow-up with PCP within 24-48 hours and return immediately if symptoms worsen. Print Language: Danish Stand Alone Forms: Patient Portal Info Letter ANTON/BUSTER Supervising Physician ANTON/BUSTER Supervising Physician: Dr. Vaughan
== END 2024-09-07 19:13 | disposition home or self-care (01) ==
LOC: SERX 19:04
PROVIDERS: Emergency Provider Emergency Medicine; PCP Family Medicine
DX: K64.9 Unspecified hemorrhoids (principal)
CPT/HCPCS: 99282

== ENCOUNTER 2024-12-01 15:25 | Emergency (ER) | payer MEDICAID, SELFPAY ==
[2024-12-01 15:55] VITALS: BP 113/82; PULSE 73; RESP 20; TEMP 36.7; O2SAT 98; BMI 50.3
--- NOTE | 2024-12-01 16:10 | PD.EDRME ---
Rapid Medical Screening Exam RME Arrival date/time: 12/01/24 15:25 44-year-old female presents to the emergency department today stating she was sent by PCP for abnormal urine culture Chief Complaint: Recheck/Abnormal Lab/Rx Vital signs: Vital Signs Temperature 98.1 F 12/01/24 15:55 Pulse Rate 73 12/01/24 15:55 Respiratory Rate 20 12/01/24 15:55 Blood Pressure 113/82 12/01/24 15:55 Pulse Oximetry (%) 98 12/01/24 15:55 Oxygen Delivery Method Room Air 12/01/24 15:55
[2024-12-01 16:35] LABS: Basophils # (Auto) 0.1 Thou/mm3 (0.0-0.2); Basophils % (Auto) 1 % (0-2.5); Eosinophils # (Auto) 0.4 Thou/mm3 (0.0-0.5); Eosinophils % (Auto) 6 % (0-10); Hematocrit 43.4 % (36.0-46.0); Hemoglobin 14.1 g/dL (12.0-16.0); Immature Granulocytes Auto 0.02 Thou/mm3 (0.00-0.00); Lymphocytes # (Auto) 2.0 Thou/mm3 (1.0-4.8); Lymphocytes % (Auto) 31 % (10-50); Mean Corpuscular HGB Conc 32.5 g/dl (31.0-37.0); Mean Corpuscular Hemoglobin 29.9 pg (25.0-35.0); Mean Corpuscular Volume 92 fL (80-100); Monocytes # (Auto) 0.6 Thou/mm3 (0.0-0.8); Monocytes % (Auto) 9 % (0-12); Neutrophils # (Auto) 3.5 Thou/mm3 (1.8-7.7); Neutrophils % (Auto) 53 % (37-80); Nucleated Red Blood Cell # 0.00 Thou/mm3 (0.00-0.00); Nucleated Red Blood Cell % 0 /100 WBC (0); Platelet Count 287 Thou/mm3 (140-440); RDW Standard Deviation 44.3 fL (36.4-46.3); Red Blood Count 4.72 Miln/mm3 (4.00-5.20); White Blood Count 6.5 Thou/mm3 (3.6-11.0)
[2024-12-01 16:58] LABS: Alanine Aminotransferase 50 U/L (10-49); Albumin, Serum 4.6 gm/dL (3.5-5.0); Albumin/Globulin Ratio 1.6 (1.2-2.2); Alkaline Phosphatase 72 U/L (46-116); Anion Gap 12 (7-16); Aspartate Amino Transferase 29 U/L (0-34); BUN/Creatinine Ratio 13 Ratio (12-20); Bilirubin,Total 0.3 mg/dL (0.3-1.2); Blood Urea Nitrogen 8 mg/dL (9-23); Calcium 9.5 mg/dL (8.3-10.6); Calcium (Corrected) 9.5 mg/dL (8.5-10.1); Carbon Dioxide 25.4 mMol/L (20.0-31.0); Chloride 106 mMol/L (98-107); Creatinine (Component) 0.6 mg/dL (0.6-1.3); Estimated Creatinine Clearance 154.2 mL/min (>60); Globulin 2.9 gm/dL (2.3-3.5); Glucose 127 mg/dL (74-106); Osmolality,Calculated 285 (275-295); Potassium 4.4 mMol/L (3.4-5.1); Sodium 143 mMol/L (136-145); Total Protein 7.5 gm/dL (5.7-8.2); eGFR > 60 See Note
[2024-12-01 17:10] LABS: Collection Type, Urine Clean Catch
[2024-12-01 17:22] LABS: Bilirubin,Urine Negative (Negative); Blood,Urine Negative (Negative); Clarity,Urine Clear (Clear/Hazy); Color,Urine Colorless (Lt Yel-Yel); Culture Indicated,Urine Not Indicated; Glucose, Urine Negative (Negative); Ketones,Urine Negative (Negative); Leukocyte Esterase,Urine Negative (Negative); Nitrite,Urine Negative (Negative); PH,Urine 6.0 (5.0-7.0); Protein,Urine Negative (Neg - Trace); RBC,Urine 2 /hpf (0-3); Specific Gravity,Urine 1.007 (1.001-1.035); Squamous Epithelial Cell,Urine 1 /hpf (0-5); Urobilinogen,Urine Negative mg/dL (0.0-1.0); WBC,Urine 1 /hpf (0-5)
[2024-12-01 17:25] LABS: HCG Qualitative,Urine Negative
[2024-12-01 19:55] VITALS: BP 131/85; PULSE 64; RESP 18; TEMP 36.6; O2SAT 100
--- NOTE | 2024-12-01 20:15 | PD.EDRECHK ---
ED Recheck Abnl Lab Rx-RME/HPI General Chief Complaint: Recheck/Abnormal Lab/Rx Stated Complaint: ABNORMAL LABS Time Seen by Provider: 12/01/24 20:06 Arrival date/time: 12/01/24 15:25 RME / HPI RME / HPI narrative: 12/01/24 15:25 44-year-old female presents to the emergency department today stating she was sent by PCP for abnormal urine culture. Patient brought the urine culture and from her PCP which showed 10-25,000 colony-forming units of E. coli which was multidrug-resistant however patient is currently asymptomatic. Patient wanted to see her PCP due to back pain and they obtained a UA which ended up growing out the culture as after mentioned. Patient states her symptoms are essentially resolved however she does have some mild pain to her back which is worse with certain movements similar to pain she has in the past and has been ongoing for the past 2 weeks which is why she saw her PCP initially anyways. Denies any direct trauma, numbness, tingling, weakness, fever, incontinence, vomiting, dysuria, burning with urination, frequency with urination, hematuria. Related Data Home Medications ?Medication ?Instructions ?Recorded ?Confirmed loratadine 10 mg tablet (Claritin) 10 mg PO QDAY PRN Allergic Symptoms 05/08/23 05/08/23 Held on 05/08/23. Instructions: Resume on 05/09/23. Previous Rx's ?Medication ?Instructions ?Recorded sumatriptan succinate 50 mg tablet See Rx Instructions PO .COMPLEX 11/07/22 (Imitrex) #10 tabs lidocaine 5 % topical ointment 1 applic topical BID PRN pain #30 09/07/24 grams Allergies Allergy/AdvReac Type Severity Reaction Status Date / Time No Known Allergies Allergy Verified 12/01/24 15:27 Past Medical History Past Medical History NEUROLOGIC: Positive Neurological Disorders and Migraine; Negative Cerebrovascular Accident or Seizures CARDIAC: Negative Cardiac Disorders, Myocardial Infarction, Hypercholesterolemia, Congestive Heart Failure or Hypertension RESPIRATORY: Negative Chronic Obstructive Pulmonary Disease (COPD) or Asthma GASTROINTESTINAL: Positive Gastrointestinal Disorders and Obesity; Negative Gastrointestinal Bleed, Hemorrhoids or Gastroesophageal Reflux Disease GENITOURINARY: Positive Genitourinary Disorders; Negative Renal Disease REPRODUCTIVE: Positive Previous Pregnancies MUSCULOSKELETAL: Positive Musculoskeletal Disorders ENDOCRINE: Positive Endocrine Disorders; Negative Diabetes Mellitus Type 1, Diabetes Mellitus Type 2, Hyperthyroidism or Hypothyroidism HEMATOLOGIC: Negative Blood Disorders or Sickle Cell Disease OTHER HISTORY: Negative Autoimmune Disease, Blood Transfusions, Blood Transfusion Reaction, Anesthesia Reactions, MRSA, Clostridium Difficile or Cancer Family History FAMILY HISTORY: Negative Family Respiratory Disorders, Family Cardiac Disorders, Family Gastrointestinal Problems, Family Cancer, Family Surgery or Family Anesthesia Reaction Surgical History SURGICAL: Positive Hysterectomy and Section Social History SMOKING STATUS: Never smoker SECOND HAND EXPOSURE: No SUBSTANCE USE: does not use ED Exam Narrative Physical exam: Constitutional: Patient alert and oriented. Well appearing. No acute distress. Not toxic appearing. Head: Normocephalic, atraumatic. Eyes: Periorbital regions bilaterally normal to inspection. Conjunctiva clear bilaterally. Sclera anicteric bilaterally. Pupils equal, round, reactive to light bilaterally. Extraocular movements intact bilaterally. Mouth/Throat: Mucous membranes moist. No stridor or muffled voice. No trismus. Handling secretions without difficulty. Airway widely patent. Neck: Supple. Trachea midline. No JVD. No nuchal rigidity. Normal range of motion. Respiratory: Normal effort. No accessory muscle use or respiratory distress. Lungs clear to auscultation bilaterally without rhonchi, wheezes, or crackles. Cardiovascular: RRR. Normal S1/S2. No murmurs or rubs. Radial pulses intact bilaterally. Abdomen: Soft. Non-distended. Non-tender throughout. No pulsatile mass. No guarding or rebound. Negative Coombs?s sign. Negative McBurney?s point tenderness. Negative Rovsing?s. Back: No midline tenderness or step-offs. No CVA tenderness to palpation bilaterally. Positive paralumbar tenderness to palpation bilaterally. Upper Extremities: No gross deformities. Lower Extremities: No gross deformities. No edema or calf tenderness. Neuro: Speech normal. No gross motor or sensory deficits to upper or lower extremities bilaterally. GCS 15. CN II?XII grossly intact. Skin: Warm, dry, normal color. Psych: Normal affect. Cooperative. Normal insight. Course Quality Measures none Orders Category Date Time Status CBC Stat Lab 12/01/24 16:15 Completed Comprehensive Metabolic Panel Stat Lab 12/01/24 16:15 Completed HCG Qualitative,Urine Stat Lab 12/01/24 17:03 Completed UA, C/S IF [Urinalysis, C/S if Indicated] Stat Lab 12/01/24 17:03 Completed Ketorolac Inj [Toradol Inj] Med 12/01/24 20:25 Once 30 mg IM X1 ONE Vital Signs Vital signs: Vital Signs Temperature 98.1 F 12/01/24 15:55 Pulse Rate 73 12/01/24 15:55 Respiratory Rate 20 12/01/24 15:55 Blood Pressure 113/82 12/01/24 15:55 Pulse Oximetry (%) 98 12/01/24 15:55 Oxygen Delivery Method Room Air 12/01/24 15:55 Recheck / Abnormal Lab / Rx MDM Narrative MDM Narrative:: MDM 44-year-old female with a past medical history of an adrenal nodule, flank pain, biliary colic who presents to the ER after being directed by her PCP to present to ER for an abnormal urine culture. I reviewed patient's urine culture which did note a voided urine with 10-25CFU of MDR E. Coli. This amount of bacteria in the urine is not consistent with a UTI. Patient notes that she does have some mild back pain worse with certain movements otherwise patient has no urinary symptoms, fever, vomiting I suspect patient's symptoms are secondary to musculoskeletal Low Back Pain This patient presents with acute low back pain most consistent with musculoskeletal strain or spasm. Pain is localized without radiation, paresthesia, or weakness. No bowel or bladder incontinence.No acute neurologic deficits. Doubt cauda equina syndrome, spinal cord compression, infection, trauma, malignancy, dissection, or nephrolithiasis based on history, exam, and absence of red flag symptoms. Doubt renal colic, pyelonephritis, or obstructive uropathy?pain localized to lower back without flank radiation or CVA tenderness. Advanced imaging (CT/MRI) considered but not indicated given absence of neurologic deficits or high-risk features. Plan: Symptomatic management with analgesics, stretching, and activity as tolerated. Discussed medication precautions and return precautions for worsening pain, fever, new weakness, numbness, or bowel/bladder changes, urinary symptoms. Advised follow-up with PCP within 1?2 days for reassessment. Patient data External records reviewed:: [facility] previous records and PCP records Clinical information provided by:: patient Social determinants that could affect healthcare access:: none Patient has the following chronic illnesses:: As noted How is presenting disease/condition affected by chronic disease/condition?: no chronic disease Evaluation data The following diagnostics were reviewed and interpreted by me:: lab results Lab and/or radiology exams considered but not ordered:: Additional Labs and radiology considered, but not ordered as they were not clinically indicated at this time. Interpretation Summary: CBC without severe leukocytosis, anemia, or thrombocytopenia CMP without severe hyperbilirubinemia, transaminitis, acute renal failure or severe electrolyte derangement there is a mildly elevated ALT 50 safe for outpatient follow-up likely secondary to [place] Lipase without severe elevation UA negative, 1 WBC noted, 1 squamous cell noted, 2 RBCs noted no nitrites no leuks no blood cells it is completely unremarkable UA negative Medications / Prescriptions Medications or Prescriptions considered but not ordered:: I considered prescription management (both outpatient prescriptions AND drug treatment in the ER) and decided that this was necessary and was prescribed as charted. Medication administrations:: Medication Administration History Ketorolac Tromethamine (Ketorolac Inj 30 Mg/Ml Vial) 30 mg IM X1 ONE Stop: 12/01/24 20:26 None Consultations Consultation(s) initiated? (list below): No Diagnosis Recheck Differential Diagnosis: other (As noted) Most likely diagnosis given after review of the tests above:: Musculoskeletal back pain and urine negative for UTI Admission Indicated Admission indicated?: not indicated Admission Request Was there a request for admission?: No Disposition Plan Disposition Plan: Discharge Discharge Attestation Discharge Attestation: The patient and all family members were given an opportunity to ask questions and understood the discharge instructions. Discharge instructions specifically effects, indications for sooner follow up or return to the emergency department, and the expected course of current diagnosis. Patient condition: Stable Discharge Plan Plan Patient Disposition: HOME (Self Care) Prescriptions/Referrals Prescriptions/Med Rec: No Action sumatriptan succinate [Imitrex] 50 mg tablet See Rx Instructions .ROUTE .COMPLEX Qty: 10 0RF Rx Instructions: take 1 tab at onset of headache; if no relief may repeat 1 tab after at least 2 hrs; max = 4 tabs/24 hr lidocaine 5 % ointment 1 applic topical BID PRN (Reason: pain) Qty: 30 0RF loratadine [Claritin] 10 mg Tablet 10 mg PO QDAY PRN (Reason: Allergic Symptoms) Referrals: Bijan Still MD [Primary Care Provider, Family Practice] - In 1 week Problem List Clinical Impression: Back pain Patient/Caregiver Discharge Instructions Education Materials: Back Basics: A Healthy Spine Additional Instructions: Follow up with your primary medical doctor within 24 hours. Return to the Emergency Room immediately for any new, worsening, continuing symptoms or any concerns at all. Return to the Emergency Room within 24 hours if you are unable to follow up with your primary medical doctor within 24 hours. Print Language: Citizen Of [place] Stand Alone Forms: Xiao Award Info., Patient Portal Info Letter PA/SEWER CLEANER Supervising Physician PA/SEWER CLEANER Supervising Physician: Dr. Jiang
[2024-12-01] MEDS: KETOROLAC INJ 60 MG/2 ML VIAL 30 MG IM (20:42)
== END 2024-12-01 20:45 | disposition home or self-care (01) ==
PROVIDERS: Nurse Practitioner Primary Care; Emergency Provider Emergency Medicine; PCP Family Medicine
DX: M54.9 Dorsalgia, unspecified (principal)
CPT/HCPCS: 36415; 80053; 81001; 81025; 85025; 96372; 99283; J1885

== ENCOUNTER → 2025-01-07 | Outpatient (CLI) | payer MEDICAID, SELFPAY ==
--- NOTE | 2025-01-07 08:00 | XR_ITS ---
Examination: MRI abdomen with intravenous contrast. MRI abdomen without intravenous contrast. Date and time of exam: January 07, 2025, 0849 hours, comparison CT abdomen pelvis June 18, 2024 INDICATIONS: CT abdomen/pelvis June 19, 1999 2518 mm indeterminate left adrenal nodule Technique: Multiple axial, sagittal and coronal sections of the abdomen obtained. Transverse images, TR 6020, TE 107. T1 weighted transverse images, TR 582, TE 9.5. T2-weighted sagittal images, TR 4000, TE 105. T2-weighted sagittal images, TR 4000, TE 5. Coronal images, TR 4210, TE 107. Axial and coronal images are obtained post 20 cc intravenous injection, gadolinium. Findings: No visualized liver lesions No intrahepatic biliary tract dilatation Gallbladder is not visualized Normal common hepatic common bile duct no stones No pancreatic mass 18 mm left adrenal nodule which demonstrates mild diffuse enhancement No hydronephrosis No ascites No abdominal lymphadenopathy Postcontrast images demonstrate no abnormal liver splenic or renal enhancement IMPRESSION: 18 mm left adrenal nodule, highest on the differential list primary adrenal tumor, metastatic left adrenal mass
--- NOTE | 2025-01-07 09:00 | XR_ITS ---
Examination: MRI pelvis with intravenous contrast. MRI pelvis without intravenous contrast. Date and time of exam: January 07, 2025, 0849 hours INDICATIONS: 18 mm adrenal nodule noted on CT abdomen study June 18, 2024 Technique: Multiple axial, sagittal and coronal sections of the pelvis obtained. Transverse images, TR 6020, TE 107. T1 weighted transverse images, TR 582, TE 9.5. T2-weighted sagittal images, TR 4000, TE 105. T2-weighted sagittal images, TR 4000, TE 5. Coronal images, TR 4210, TE 107. Axial and coronal images are obtained post 20 cc intravenous injection, gadolinium. Findings: No common iliac external iliac internal iliac or common femoral pathologic lymphadenopathy No pelvic mass No free fluid in the pelvis No bowel obstruction Adequate marrow signal lower lumbar vertebral body sacral and coccygeal segments bones of the pelvis and hips Intact urinary bladder IMPRESSION: No pathologic pelvic lymphadenopathy No pelvic mass
== END | disposition home or self-care (01) ==
PROVIDERS: PCP Family Medicine; Referring Provider Family Medicine; Visit Provider Family Medicine
DX: E27.8 Other specified disorders of adrenal gland (principal)
CPT/HCPCS: 72197; 74183; A9577

== ENCOUNTER 2025-01-10 08:41 | Emergency (ER) | payer MEDICAID, SELFPAY ==
[2025-01-10 08:57] VITALS: BP 134/87; PULSE 89; RESP 18; TEMP 37; O2SAT 99; BMI 28.0
--- NOTE | 2025-01-10 08:58 | PD.EDRME ---
Rapid Medical Screening Exam [facility] Arrival date/time: 01/10/25 08:41 44-year-old female with no known medical history presents to the emergency room with a chief complaint of left lower quadrant abdominal tenderness x 1 week. Patient states she recently had an MRI 3 days ago of her abdomen. I have greeted and performed a focused initial assessment of this patient. A comprehensive ED assessment and evaluation of the patient, analysis of all test results, and completion of the medical decision making process will be conducted by additional ED providers. Chief Complaint: Abdominal Pain Vital signs: Vital Signs Temperature 98.6 F 01/10/25 08:57 Pulse Rate 89 01/10/25 08:57 Respiratory Rate 18 01/10/25 08:57 Blood Pressure 134/87 H 01/10/25 08:57 Pulse Oximetry (%) 99 01/10/25 08:57 Oxygen Delivery Method Room Air 01/10/25 08:57 Vital signs reviewed by provider: Yes Exam: Left lower quadrant abdominal tenderness with palpation Strong and regular rhythm clear bilateral lung sounds Clinical Impression: Diverticulitis/diverticulosis/gastroenteritis
[2025-01-10 09:34] LABS: Collection Type, Urine Clean Catch
[2025-01-10 09:44] LABS: Bilirubin,Urine Negative (Negative); Blood,Urine Negative (Negative); Clarity,Urine Clear (Clear/Hazy); Color,Urine Lt-Yellow (Lt Yel-Yel); Glucose, Urine Negative (Negative); Ketones,Urine Negative (Negative); Leukocyte Esterase,Urine Positive (Negative); Nitrite,Urine Negative (Negative); PH,Urine 6.0 (5.0-7.0); Protein,Urine Negative (Neg - Trace); RBC,Urine 2 /hpf (0-3); Specific Gravity,Urine 1.014 (1.001-1.035); Squamous Epithelial Cell,Urine 2 /hpf (0-5); Urobilinogen,Urine Negative mg/dL (0.0-1.0); WBC,Urine 1 /hpf (0-5)
[2025-01-10 09:46] LABS: HCG Qualitative,Urine Negative
[2025-01-10 09:59] LABS: Basophils # (Auto) 0.0 Thou/mm3 (0.0-0.2); Basophils % (Auto) 0 % (0-2.5); Eosinophils # (Auto) 0.2 Thou/mm3 (0.0-0.5); Eosinophils % (Auto) 3 % (0-10); Hematocrit 44.0 % (36.0-46.0); Hemoglobin 14.7 g/dL (12.0-16.0); Immature Granulocytes Auto 0.03 Thou/mm3 (0.00-0.00); Lymphocytes # (Auto) 0.9 Thou/mm3 (1.0-4.8); Lymphocytes % (Auto) 14 % (10-50); Mean Corpuscular HGB Conc 33.4 g/dl (31.0-37.0); Mean Corpuscular Hemoglobin 30.5 pg (25.0-35.0); Mean Corpuscular Volume 91 fL (80-100); Monocytes # (Auto) 0.5 Thou/mm3 (0.0-0.8); Monocytes % (Auto) 7 % (0-12); Neutrophils # (Auto) 4.9 Thou/mm3 (1.8-7.7); Neutrophils % (Auto) 76 % (37-80); Nucleated Red Blood Cell # 0.00 Thou/mm3 (0.00-0.00); Nucleated Red Blood Cell % 0 /100 WBC (0); Platelet Count 272 Thou/mm3 (140-440); RDW Standard Deviation 41.5 fL (36.4-46.3); Red Blood Count 4.82 Miln/mm3 (4.00-5.20); White Blood Count 6.5 Thou/mm3 (3.6-11.0)
--- NOTE | 2025-01-10 10:11 | EDNOTE_ITS ---
ED Abdominal Pain RME/HPI General Chief Complaint: Abdominal Pain Stated complaint: L) SIDE ABD PAIN 09/26, N/V Time seen by provider: 01/10/25 09:40 Arrival date/time: 01/10/25 08:41 Limitations: no limitations RME / HPI RME / HPI narrative: 01/10/25 08:41 44-year-old female with no known medical history presents to the emergency room with a chief complaint of left lower quadrant abdominal tenderness x 1 week. Patient states she recently had an MRI 3 days ago of her abdomen. I have greeted and performed a focused initial assessment of this patient. A comprehensive ED assessment and evaluation of the patient, analysis of all test results, and completion of the medical decision making process will be conducted by additional ED providers. Dr. Kerr evaluation Patient is a 44-year-old female with medical history notable for constipation, chronic abdominal pain, that is in the emergency department with concerns for left-sided abdominal pain. Patient states that she recently had an MRI for abdominal pain. Does not have the results yet. Denies fevers, chills does endorse nausea. Denies diarrhea. Does endorse dysuria. Denies melena, bloody stools. Patient has had multiple surgeries C-sections, she is passing gas she did have a bowel movement earlier today. Denies drugs, alcohol, smoking. No hematuria. Exam: Left lower quadrant abdominal tenderness with palpation Strong and regular rhythm clear bilateral lung sounds Impression: Diverticulitis/diverticulosis/gastroenteritis Related Data Home Medications ?Medication ?Instructions ?Recorded ?Confirmed loratadine 10 mg tablet (Claritin) 10 mg PO QDAY PRN A llergic Symptoms 05/08/23 05/08/23 Held on 05/08/23. Instructions: Resume on 05/09/23. Previous Rx's ?Medication ?Instructions ?Recorded sumatriptan succinate 50 mg tablet See Rx Instructions PO .COMPLEX 11/07/22 (Imitrex) #10 tabs lidocaine 5 % topical ointment 1 applic topical BID WI N pain #30 09/07/24 grams Allergies Allergy/AdvReac Type Severity Reaction Status Date / Time No Known Allergies Allergy Verified 01/10/25 08:47 Review of Systems Review of Systems Systems Reviewed: All systems reviewed, normal except as documented Past Medical History Past Medical History NEUROLOGIC: Positive Neurological Disorders and Migraine GASTROINTESTINAL: Positive Gastrointestinal Disorders and Obesity GENITOURINARY: Positive Genitourinary Disorders REPRODUCTIVE: Positive Previous Pregnancies MUSCULOSKELETAL: Positive Musculoskeletal Disorders ENDOCRINE: Positive Endocrine Disorders Surgical History SURGICAL: Positive Hysterectomy and Section Social History SMOKING STATUS: Never smoker SECOND HAND EXPOSURE: No SUBSTANCE USE: does not use ED Exam General Limitations: Present no limitations General appearance: Present alert and in no apparent distress Head Head exam: Present atraumatic and normocephalic Eye Eye exam: Present normal appearance and PERRL ENT ENT exam: Present normal exam and normal oropharynx Neck Neck exam: Present normal inspection and full ROM Chest Chest inspection: Present normal inspection and symmetric chest wall rise Respiratory Respiratory exam: Present normal lung sounds bilaterally; Absent respiratory distress Cardiovascular Cardiovascular exam: Present regular rate; Absent normal rhythm Abdominal Exam Abdominal exam: Present soft; Absent distention, tenderness, guarding, rebound or rigidity Back Exam Back exam: Present normal inspection Neurological Exam Neurological exam: Present alert and other (No focal neurodeficits) Psychiatric Psychiatric exam: Present normal affect and normal mood Course Quality Measures none Orders Category Date Time Status CT Screening NOW Care 01/10/25 11:[address] abdomen pelvis w con Stat Exams 01/10/25 11:11 Completed KUB [XR abdomen 1V] Stat Exams 01/10/25 10:28 Completed CBC Stat Lab 01/10/25 09:41 Completed CMP [Comprehensive Metabolic Panel] Stat Lab 01/10/25 09:41 Completed HCG Qualitative,Urine Stat Lab 01/10/25 09:09 Completed Lipase Stat Lab 01/10/25 09:41 Completed UA [Urinalysis] Stat Lab 01/10/25 09:09 Completed Urine Culture Stat Lab 01/10/25 09:09 Received Ketorolac Inj [Toradol Inj] Med 01/10/25 10:38 Discontinued 15 mg IVP X1 ONE Vital Signs Vital signs: Vital Signs Temperature 98.6 F 01/10/25 08:57 Pulse Rate 89 01/10/25 08:57 Respiratory Rate 18 01/10/25 08:57 Blood Pressure 134/87 H 01/10/25 08:57 Pulse Oximetry (%) 99 01/10/25 08:57 Oxygen Delivery Method Room Air 01/10/25 08:57 Pulse ox is 99% on room air which is adequate. Abdominal Pain MDM MDM Narrative MDM Narrative:: Patient is a 45-year-old female seen Emergency Department concerns for abdominal pain. Vital signs and exam as listed. Concern for urinary tract infection, pancreatitis, intra-abdominal mass constipation among others. Ordered labs offered medication for symptom relief. Patient states that she recently had an MRI will chart review. Patient is not , urinalysis positive for leuk esterase, 1 white blood cell, 2 squames no bacteria negative nitrite, less likely urinary tract infection, lipase not elevated no transaminitis, no significant acute metabolic disturbance nor any acute hematologic disturbance. MRI pelvis unremarkable. MRI of the abdomen with no intrahepatic biliary tract dilatation, normal, hepatic, common bile duct without any stones, no pancreatic mass. Patient does have an 18 mm left adrenal nodule which demonstrates mild diffuse enhancement. Concerning for possible adrenal tumor versus metastatic left adrenal mass. According to the radiologist. Updated patient on the results of her MRI advised her to follow-up with her primary care doctor to discuss further management.\ KUB with evidence of ileus. CT abdomen pelvis without any acute intra-abdominal abnormalities. On reevaluation patient symptoms well-controlled. Patient was discharged updated. Advised to follow-up with primary care doctor to discuss findings from her MRI as well as her workup today. Discharged hemodynamically stable not in distress Patient data External records reviewed:: [facility] previous records Clinical information provided by:: patient Social determinants that could affect healthcare access:: none Patient has the following chronic illnesses:: See MDM How is presenting disease/condition affected by chronic disease/condition?: exacerbated by Evaluation data The following diagnostics were reviewed and interpreted by me:: lab results and radiology exam(s) Lab and/or radiology exams considered but not ordered:: None Interpretation Summary: See above Medications / Prescriptions Medications or Prescriptions considered but not ordered:: None Medication administrations:: Medication Administration History Discontinued Medications Ketorolac Tromethamine (Ketorolac Inj 30 Mg/Ml Vial) 15 mg IVP X1 ONE Stop: 01/10/25 10:39 Last Admin: 01/10/25 11:55 Dose: 15 mg Documented By: TM See above Consultations Consultation(s) initiated? (list below): No Diagnosis Differential diagnosis abdominal pain: other Most likely diagnosis given after review of the tests above:: Abdominal pain Adrenal mass Admission Indicated Admission indicated?: not indicated Admission Request Was there a request for admission?: No Disposition Plan Disposition Plan: Discharge Discharge Attestation Discharge Attestation: The patient and all family members were given an opportunity to ask questions and understood the discharge instructions. Discharge instructions specifically effects, indications for sooner follow up or return to the emergency department, and the expected course of current diagnosis. Patient condition: Stable Discharge Plan Plan Patient Disposition: HOME (Self Care) Prescriptions/Referrals Prescriptions/Med Rec: No Action sumatriptan succinate [Imitrex] 50 mg tablet See Rx Instructions .ROUTE .COMPLEX Qty: 10 0RF Rx Instructions: take 1 tab at onset of headache; if no relief may repeat 1 tab after at least 2 hrs; max = 4 tabs/24 hr lidocaine 5 % ointment 1 applic topical BID PRN (Reason: pain) Qty: 30 0RF loratadine [Claritin] 10 mg Tablet 10 mg PO QDAY PRN (Reason: Allergic Symptoms) Referrals: Stephan Pedraza PA-C [Primary Care Provider] - In 1 week Problem List Clinical Impression: Abdominal pain, Adrenal mass Patient/Caregiver Discharge Instructions Education Materials: Abdominal Pain Additional Instructions: Martha estudios demostraron que tiene un tejido abnormal en cheng glandula suprarenal de cheng lado derecho. Tambien demostro que martha intestinos tienen garfield lento. Le recomiendo que coma manjula dieto sakina en vegetales y arianna sufieciente agua. Por favor discutir los resultados de cheng resonancia magnetica con cheng medico de cabecera. Print Language: [place] Stand Alone Forms: Xiao Award Info., Patient Portal Info Letter
[2025-01-10 10:13] LABS: Alanine Aminotransferase 48 U/L (10-49); Albumin, Serum 4.9 gm/dL (3.5-5.0); Albumin/Globulin Ratio 1.8 (1.2-2.2); Alkaline Phosphatase 77 U/L (46-116); Anion Gap 11 (7-16); Aspartate Amino Transferase 23 U/L (0-34); BUN/Creatinine Ratio 13 Ratio (12-20); Bilirubin,Total 0.3 mg/dL (0.3-1.2); Blood Urea Nitrogen 8 mg/dL (9-23); Calcium 9.2 mg/dL (8.3-10.6); Calcium (Corrected) 9.2 mg/dL (8.5-10.1); Carbon Dioxide 22.4 mMol/L (20.0-31.0); Chloride 108 mMol/L (98-107); Creatinine (Component) 0.6 mg/dL (0.6-1.3); Estimated Creatinine Clearance 115.9 mL/min (>60); Globulin 2.7 gm/dL (2.3-3.5); Glucose 162 mg/dL (74-106); Lipase 32 U/L (12-53); Osmolality,Calculated 283 (275-295); Potassium 3.8 mMol/L (3.4-5.1); Sodium 141 mMol/L (136-145); Total Protein 7.6 gm/dL (5.7-8.2); eGFR > 60 See Note
--- NOTE | 2025-01-10 10:28 | XR_ITS ---
Examination: Abdomen AP single view Technique: AP portable supine abdomen, single view Exam date and time: January 10, 2025, 10:45 a.m. INDICATIONS: Constipation beginning 3 days ago. FINDINGS: Moderate stool in the right colon Air distended small bowel loops in the left abdomen Surgical clips upper right abdomen No free air IMPRESSION: Small bowel ileus, clinical correlation advised
[2025-01-10 10:36] VITALS: BP 104/71; PULSE 67; RESP 17; TEMP 36.9; O2SAT 95
--- NOTE | 2025-01-10 11:11 | XR_ITS ---
Examination: CT abdomen with intravenous contrast CT pelvis with intravenous contrast 2-D coronal reconstructions 2-D sagittal reconstructions Date and time of exam: January 10, 2025, 1221 hours INDICATIONS: Left lower abdominal pain nausea beginning today, 18 mm indeterminate left adrenal nodule on CT abdomen June 18, 2024 COMPARISON: June 18, 2024. CTDI: vol (mGy) 12.8 DLP: (mGycm) 744 Technique: Multiple axial sections of the abdomen and pelvis have been obtained. 64 slice high-resolution scanner used. 3 mm axial sections have been obtained, post intravenous injection 60 cc [id number] 2-D sagittal, coronal reconstructions obtained. Low dose protocols were performed. One or more of the following dose reduction techniques were used; automated exposure control, adjustment of the mA and/or KV according to patient size, use of iterative reconstruction technique. Findings: No visualized liver or splenic lesion Absent gallbladder No pancreatic mass Stable 18 mm left adrenal nodule Aorta normal size No bowel obstruction Normal appendix No diverticulitis, mild small bowel ileus Absent uterus Intact urinary bladder No pelvic mass Mild osteopenia IMPRESSION: Stable 18 mm indeterminate left adrenal nodule Absent gallbladder No common hepatic or common bile duct stones No renal or ureteral calculi, no hydronephrosis Normal appendix Mild small bowel ileus
[2025-01-10] MEDS: KETOROLAC INJ 30 MG/ML VIAL 15 MG IVP (11:55)
[2025-01-10 12:37] VITALS: BP 105/74; PULSE 61; RESP 17; TEMP 36.5; O2SAT 96
[2025-01-10 14:53] VITALS: BP 108/72; PULSE 63; RESP 19; TEMP 36.9; O2SAT 96
== END 2025-01-10 14:54 | disposition home or self-care (01) ==
PROVIDERS: Nurse Practitioner Family; Emergency Provider Emergency Medicine; PCP Family Medicine
DX: E27.8 Other specified disorders of adrenal gland (principal); K56.7 Ileus, unspecified
CPT/HCPCS: 36415; 74018; 74177; 80053; 81001; 81025; 83690; 85025; 87086; 96374; 99283; A4649; J1885; Q9967

== ENCOUNTER 2025-01-11 16:48 | Emergency (ER) | payer MEDICAID, SELFPAY ==
[2025-01-11 17:39] VITALS: BP 124/87; PULSE 101; RESP 18; TEMP 36.9; O2SAT 95; BMI 38.9
--- NOTE | 2025-01-11 17:50 | XR_ITS ---
Examination: CT brain head without contrast. 2-D sagittal coronal reconstructions Date and time of exam: January 11, 2025, 1837 hours INDICATIONS: Left facial numbness today CTDI: vol (mGy): 72.7 DLP: (mGycm): 1256 Technique: Multiple CT axial sections of the brain have been obtained, 5 mm slice thickness. Contrast has not been administered. 2-D sagittal, coronal reconstructions have been obtained Low dose protocols were performed. One or more of the following dose reduction techniques were used; automated exposure control, adjustment of the mA and/or KV according to patient size, use of iterative reconstruction technique. Findings: No significant ventricular enlargement. Intra-axial or extra-axial hemorrhage density is not seen. No mass effect or midline shift Basal cisterns are not remarkable. Fourth ventricle is midline. Cranial vault intact. Impression: Negative for acute hemorrhage, mass effect or midline shift As clinically warranted, brain MRI follow-up would best assess for demyelinating disease
--- NOTE | 2025-01-11 17:50 | EKG_ITS ---
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
--- NOTE | 2025-01-11 17:51 | PD.EDRME ---
Rapid Medical Screening Exam E Arrival date/time: 01/11/25 16:48 44-year-old female with no known medical history presents to the emergency room with a chief complaint of a 10 out of 10 headache, numbness to her face, and right-sided chest pain x 1 week I have greeted and performed a focused initial assessment of this patient. A comprehensive ED assessment and evaluation of the patient, analysis of all test results, and completion of the medical decision making process will be conducted by additional ED providers. Chief Complaint: Headache Vital signs: Vital Signs Temperature 98.4 F 01/11/25 17:39 Pulse Rate 101 H 01/11/25 17:39 Respiratory Rate 18 01/11/25 17:39 Blood Pressure 124/87 H 01/11/25 17:39 Pulse Oximetry (%) 95 01/11/25 17:39 Oxygen Delivery Method Room Air 01/11/25 17:39 Vital signs reviewed by provider: Yes Exam: Strong and regular rhythm Clear bilateral lung sounds Clinical Impression: STEMI/NSTEMI/headache/migraine
[2025-01-11] MEDS: SUMAtriptan INJ 6 MG/0.5 ML VIAL SC (18:20)
[2025-01-11 18:26] LABS: Collection Type, Urine Clean Catch
[2025-01-11 18:35] LABS: Basophils # (Auto) 0.0 Thou/mm3 (0.0-0.2); Basophils % (Auto) 0 % (0-2.5); Eosinophils # (Auto) 0.1 Thou/mm3 (0.0-0.5); Eosinophils % (Auto) 2 % (0-10); Hematocrit 45.9 % (36.0-46.0); Hemoglobin 15.0 g/dL (12.0-16.0); Immature Granulocytes Auto 0.02 Thou/mm3 (0.00-0.00); Lymphocytes # (Auto) 1.3 Thou/mm3 (1.0-4.8); Lymphocytes % (Auto) 22 % (10-50); Mean Corpuscular HGB Conc 32.7 g/dl (31.0-37.0); Mean Corpuscular Hemoglobin 29.6 pg (25.0-35.0); Mean Corpuscular Volume 91 fL (80-100); Monocytes # (Auto) 0.4 Thou/mm3 (0.0-0.8); Monocytes % (Auto) 6 % (0-12); Neutrophils # (Auto) 4.0 Thou/mm3 (1.8-7.7); Neutrophils % (Auto) 69 % (37-80); Nucleated Red Blood Cell # 0.00 Thou/mm3 (0.00-0.00); Nucleated Red Blood Cell % 0 /100 WBC (0); Platelet Count 309 Thou/mm3 (140-440); RDW Standard Deviation 41.7 fL (36.4-46.3); Red Blood Count 5.06 Miln/mm3 (4.00-5.20); White Blood Count 5.7 Thou/mm3 (3.6-11.0)
[2025-01-11 18:38] LABS: Amorphous Crystals,Urine Present (Absent); Bacteria,Urine Rare; Bilirubin,Urine Negative (Negative); Blood,Urine Negative (Negative); Clarity,Urine Turbid (Clear/Hazy); Color,Urine Lt-Yellow (Lt Yel-Yel); Culture Indicated,Urine Not Indicated; Glucose, Urine Negative (Negative); Ketones,Urine Negative (Negative); Leukocyte Esterase,Urine Positive (Negative); Nitrite,Urine Negative (Negative); PH,Urine 7.0 (5.0-7.0); Protein,Urine Negative (Neg - Trace); RBC,Urine 4 /hpf (0-3); Specific Gravity,Urine 1.015 (1.001-1.035); Squamous Epithelial Cell,Urine 10 /hpf (0-5); Urobilinogen,Urine Negative mg/dL (0.0-1.0); WBC,Urine 3 /hpf (0-5)
[2025-01-11 18:48] LABS: Alanine Aminotransferase 60 U/L (10-49); Albumin, Serum 5.3 gm/dL (3.5-5.0); Albumin/Globulin Ratio 1.8 (1.2-2.2); Alkaline Phosphatase 82 U/L (46-116); Anion Gap 11 (7-16); Aspartate Amino Transferase 27 U/L (0-34); BUN/Creatinine Ratio 9 Ratio (12-20); Bilirubin,Total 0.2 mg/dL (0.3-1.2); Blood Urea Nitrogen 6 mg/dL (9-23); Calcium 10.3 mg/dL (8.3-10.6); Calcium (Corrected) 10.3 mg/dL (8.5-10.1); Carbon Dioxide 29.2 mMol/L (20.0-31.0); Chloride 103 mMol/L (98-107); Creatinine (Component) 0.7 mg/dL (0.6-1.3); Estimated Creatinine Clearance 117.9 mL/min (>60); Free T4 (Free Thyroxine) 1.58 ng/dL (0.89-1.76); Globulin 3.0 gm/dL (2.3-3.5); Glucose 128 mg/dL (74-106); Osmolality,Calculated 284 (275-295); Potassium 3.9 mMol/L (3.4-5.1); Sodium 143 mMol/L (136-145); Thyroid Stimulating Hormone 1.54 uIU/mL (0.55-4.78); Total Protein 8.3 gm/dL (5.7-8.2); Troponin I < 0.002 ng/mL (0.0-0.045); eGFR > 60 See Note
[2025-01-11 18:52] LABS: B-Type Natriuretic Peptide < 20 pg/mL (0-100)
[2025-01-11 23:14] VITALS: BP 120/84; PULSE 78; RESP 17; TEMP 36.7; O2SAT 98
--- NOTE | 2025-01-11 23:15 | PD.EDHA ---
ED Headache RME/HPI General Chief Complaint: Headache Stated Complaint: HEADACHE, FACE FEELS NUMB Time Seen by Provider: 01/11/25 23:16 Arrival date/time: 01/11/25 16:48 RME / HPI RME / HPI Narrative: 01/11/25 16:48 44-year-old female with no known medical history presents to the emergency room with a chief complaint of a 10 out of 10 headache, numbness to her face, and right-sided chest pain x 1 week I have greeted and performed a focused initial assessment of this patient. A comprehensive ED assessment and evaluation of the patient, analysis of all test results, and completion of the medical decision making process will be conducted by additional ED providers. Dr. Jiang?s Main ED Evaluation: 44yo female presents to the ED for a chief complaint of a headache x 1 week. Patient describes her pain as pressure and pulsating in nature. No radiation or migration. Patient was concerned due to her headache not resolving, so she came in for evaluation. Patient denies any dizziness, neck pain, lightheadedness, N/V, or any other associated symptoms. NKA. Related Data Home Medications ?Medication ?Instructions ?Recorded ?Confirmed loratadine 10 mg tablet (Claritin) 10 mg PO QDAY PRN Allergic Symptoms 05/08/23 05/08/23 Held on 05/08/23. Instructions: Resume on 05/09/23. Previous Rx's ?Medication ?Instructions ?Recorded sumatriptan succinate 50 mg tablet See Rx Instructions PO .COMPLEX 11/07/22 (Imitrex) #10 tabs lidocaine 5 % topical ointment 1 applic topical BID PRN pain #30 09/07/24 grams Allergies Allergy/AdvReac Type Severity Reaction Status Date / Time No Known Allergies Allergy Verified 01/10/25 08:47 Review of Systems Review of Systems Systems Reviewed: All systems reviewed, normal except as documented Past Medical History Past Medical History NEUROLOGIC: Positive Neurological Disorders and Migraine; Negative Cerebrovascular Accident or Seizures CARDIAC: Negative Cardiac Disorders, Myocardial Infarction, Hypercholesterolemia, Congestive Heart Failure or Hypertension RESPIRATORY: Negative Chronic Obstructive Pulmonary Disease (COPD) or Asthma GASTROINTESTINAL: Positive Gastrointestinal Disorders and Obesity; Negative Gastrointestinal Bleed, Hemorrhoids or Gastroesophageal Reflux Disease GENITOURINARY: Positive Genitourinary Disorders; Negative Renal Disease REPRODUCTIVE: Positive Previous Pregnancies MUSCULOSKELETAL: Positive Musculoskeletal Disorders ENDOCRINE: Positive Endocrine Disorders; Negative Diabetes Mellitus Type 1, Diabetes Mellitus Type 2, Hyperthyroidism or Hypothyroidism HEMATOLOGIC: Negative Blood Disorders or Sickle Cell Disease OTHER HISTORY: Negative Autoimmune Disease, Blood Transfusions, Blood Transfusion Reaction, Anesthesia Reactions, MRSA, Clostridium Difficile or Cancer Family History FAMILY HISTORY: Negative Family Respiratory Disorders, Family Cardiac Disorders, Family Gastrointestinal Problems, Family Cancer, Family Surgery or Family Anesthesia Reaction Surgical History SURGICAL: Positive Hysterectomy and Section Social History SMOKING STATUS: Never smoker SECOND HAND EXPOSURE: No SUBSTANCE USE: does not use ED Exam Narrative Physical exam: Generally patient is alert and in no obvious distress, heart regular rate and rhythm, lungs clear to auscultation equal bilaterally, abdomen is soft obese nontender, neurologic exam Ermias Coma Scale is 15 without focal motor deficits, head is normocephalic atraumatic, eyes pupils equal round reactive to light, neck shows no nuchal rigidity Course Quality Measures none Orders Category Date Time Status EKG (ED ONLY) *Do not use* NOW Care 01/11/25 17:[address] head/brain wo con Stat Exams 01/11/25 17:50 Completed EKG (ED Only) Stat Exams 01/11/25 17:50 Draft B-Type Natriuretic Peptide Stat Lab 01/11/25 18:16 Completed CBC Stat Lab 01/11/25 18:16 Completed Comprehensive Metabolic Panel Stat Lab 01/11/25 18:16 Completed Free T4 (Free Thyroxine) Stat Lab 01/11/25 18:16 Completed TSH [Thyroid Stimulating Hormone] Stat Lab 01/11/25 18:16 Completed Troponin I Stat Lab 01/11/25 18:16 Completed Urinalysis, C/S if Indicated Stat Lab 01/11/25 18:11 Completed Acetaminophen Tab [Tylenol Tab] Med 01/11/25 23:22 Once 650 mg PO X1 ONE SUMAtriptan INJ [Imitrex Inj] Med 01/11/25 17:50 Discontinued 6 mg SC X1 ONE Vital Signs Vital signs: Vital Signs Temperature 98.4 F 01/11/25 17:39 Pulse Rate 101 H 01/11/25 17:39 Respiratory Rate 18 01/11/25 17:39 Blood Pressure 124/87 H 01/11/25 17:39 Pulse Oximetry (%) 95 01/11/25 17:39 Oxygen Delivery Method Room Air 01/11/25 17:39 Headache MDM Narrative MDM Narrative:: Scribe Attestation: 01/11/25 - Liyah Real am scribing for and in the presence of Dr. Jiang. Lab work is unremarkable. EKG is nonischemic. Troponin is not elevated. Head CT is negative. Patient received Tylenol 650 mg p.o. Patient will be discharged in stable condition. I interpreted all labs. Patient data External records reviewed:: [facility] previous records (Per chart review, patient was seen here on 01/10/25 for abdominal pain.) Clinical information provided by:: patient Social determinants that could affect healthcare access:: none Patient has the following chronic illnesses:: none How is presenting disease/condition affected by chronic disease/condition?: no chronic disease Evaluation data The following diagnostics were reviewed and interpreted by me:: lab results, radiology exam(s) and EKG tracing(s) Lab and/or radiology exams considered but not ordered:: none Interpretation Summary: [facility] Report Signed Patient: AUGUSTINE ROJAS Record#: [id number] Birthdate: 1980 Age/Sex: 44 / F Location: [facility] Attending Dr: Ordering Physician: Schuyler Sullivan Date of Service: 01/11/25 Procedure(s): CT head/brain wo con Accession Number(s): [id number] cc: Schuyler Sullivan; Bijan Still MD; Jeremy Thompson MD~ Examination: CT brain head without contrast. 2-D sagittal coronal reconstructions Date and time of exam: January 11, 2025, 1837 hours INDICATIONS: Left facial numbness today CTDI: vol (mGy): 72.7 DLP: (mGycm): 1256 Technique: Multiple CT axial sections of the brain have been obtained, 5 mm slice thickness. Contrast has not been administered. 2-D sagittal, coronal reconstructions have been obtained Low dose protocols were performed. One or more of the following dose reduction techniques were used; automated exposure control, adjustment of the mA and/or KV according to patient size, use of iterative reconstruction technique. Findings: No significant ventricular enlargement. Intra-axial or extra-axial hemorrhage density is not seen. No mass effect or midline shift Basal cisterns are not remarkable. Fourth ventricle is midline. Cranial vault intact. Impression: Negative for acute hemorrhage, mass effect or midline shift As clinically warranted, brain MRI follow-up would best assess for demyelinating disease Dictated By: Jeremy Thompson MD Signed By: <Electronically signed by Jeremy Thompson MD in OV> 01/11/25 2136 Medications / Prescriptions Medications or Prescriptions considered but not ordered:: none Medication administrations:: Medication Administration History Acetaminophen (Acetaminophen 325 Mg Tablet) 650 mg PO X1 ONE Stop: 01/11/25 23:23 Discontinued Medications Sumatriptan Succinate (Sumatriptan Inj 6 Mg/0.5 Ml Vial) 6 mg SC X1 ONE Stop: 01/11/25 17:51 Last Admin: 01/11/25 18:20 Dose: 6 mg Documented By: OA see above Consultations Consultation(s) initiated? (list below): No Diagnosis Differential diagnosis headache: other (See MDM) Most likely diagnosis given after review of the tests above:: see clinical impression below Admission Indicated Admission indicated?: not indicated Admission Request Was there a request for admission?: No Disposition Plan Disposition Plan: Discharge Discharge Attestation Discharge Attestation: The patient and all family members were given an opportunity to ask questions and understood the discharge instructions. Discharge instructions specifically effects, indications for sooner follow up or return to the emergency department, and the expected course of current diagnosis. Patient condition: Stable Discharge Plan Plan Patient Disposition: HOME (Self Care) Prescriptions/Referrals Prescriptions/Med Rec: No Action sumatriptan succinate [Imitrex] 50 mg tablet See Rx Instructions .ROUTE .COMPLEX Qty: 10 0RF Rx Instructions: take 1 tab at onset of headache; if no relief may repeat 1 tab after at least 2 hrs; max = 4 tabs/24 hr lidocaine 5 % ointment 1 applic topical BID PRN (Reason: pain) Qty: 30 0RF loratadine [Claritin] 10 mg Tablet 10 mg PO QDAY PRN (Reason: Allergic Symptoms) Referrals: Bijan Still MD [Primary Care Provider, Family Practice] - In 1 week Problem List Clinical Impression: Cephalalgia Patient/Caregiver Discharge Instructions Education Materials: Self-Care for Headaches Additional Instructions: You may take Tylenol and or ibuprofen as needed for headache. Follow-up with your doctor for further treatment and evaluation as needed. Print Language: [place]orese Stand Alone Forms: [employer] Info., Patient Portal Info Letter
[2025-01-11] MEDS: ACETAMINOPHEN 325 MG TABLET 650 MG PO (23:32)
[2025-01-11 23:43] VITALS: BP 120/64; PULSE 76; RESP 17; TEMP 36.6; O2SAT 98
== END 2025-01-11 23:45 | disposition home or self-care (01) ==
PROVIDERS: Nurse Practitioner Family; Emergency Provider Emergency Medicine; PCP Family Medicine
DX: R51.9 Headache, unspecified (principal); R20.0 Anesthesia of skin; R94.31 Abnormal electrocardiogram [ECG] [EKG]; I11.0 Hypertensive heart disease with heart failure; I50.9 Heart failure, unspecified
CPT/HCPCS: 36415; 70450; 80053; 81001; 83880; 84439; 84443; 84484; 85025; 93005; 99283; J3030; A9270

== ENCOUNTER 2025-01-13 05:55 | Emergency (ER) | payer MEDICAID, SELFPAY ==
[2025-01-13 06:03] VITALS: BP 131/92; PULSE 70; RESP 18; TEMP 36.8; O2SAT 97
--- NOTE | 2025-01-13 06:18 | PD.EDADULT ---
ED General RME/HPI General Chief complaint: General Adult/Misc Complain Stated complaint: NOT SLEEPING X 3 DAYS, HEADACHE X 8 DAYS Time Seen by Provider: 01/13/25 06:11 Arrival date/time: 01/13/25 05:55 44-year-old female presents to the emergency department today stating she been having difficulty sleeping patient reports that she has been anxious and she reports has been depressed as her brother went back to [place]. Limitations: no limitations Related Data Home Medications ?Medication ?Instructions ?Recorded ?Confirmed loratadine 10 mg tablet (Claritin) 10 mg PO QDAY PRN Allergic Symptoms 05/08/23 05/08/23 Held on 05/08/23. Instructions: Resume on 05/09/23. Previous Rx's ?Medication ?Instructions ?Recorded sumatriptan succinate 50 mg tablet See Rx Instructions PO .COMPLEX 11/07/22 (Imitrex) #10 tabs lidocaine 5 % topical ointment 1 applic topical BID PRN pain #30 09/07/24 grams lorazepam 0.5 mg tablet (Ativan) 0.5 mg PO BID PRN anxiety #10 tabs 01/13/25 Allergies Allergy/AdvReac Type Severity Reaction Status Date / Time No Known Allergies Allergy Verified 01/13/25 05:56 Review of Systems Review of Systems Systems Reviewed: All systems reviewed, normal except as documented Constitutional Constitutional: Reports system reviewed and no additional complaints, except as documented, Denies fever(s) and Denies headache(s) Eyes Eyes: Reports system reviewed and no additional complaints, except as documented and Denies blurry vision ENT Ears, Nose, Mouth, and Throat: Reports system reviewed and no additional complaints, except as documented, Denies headache(s), Denies nasal congestion and Denies nasal discharge Cardiovascular Cardiovascular: Reports system reviewed and no additional complaints, except as documented, Denies chest pain and Denies dyspnea Respiratory Respiratory: Reports system reviewed and no additional complaints, except as documented, Denies chest congestion, Denies cough and Denies dyspnea Gastrointestinal Gastrointestinal: Reports system reviewed and no additional complaints, except as documented and Denies abdominal pain Integumentary/Breasts Skin/Breast: Reports system reviewed and no additional complaints, except as documented and Denies rash Neurologic Neurologic: Reports system reviewed and no additional complaints, except as documented, Reports as per HPI and Denies headache(s) Psychiatric Psychiatric: Reports system reviewed and no additional complaints, except as documented, Reports anxiety and Reports depression Past Medical History Past Medical History NEUROLOGIC: Positive Neurological Disorders and Migraine; Negative Cerebrovascular Accident or Seizures CARDIAC: Negative Cardiac Disorders, Myocardial Infarction, Hypercholesterolemia, Congestive Heart Failure or Hypertension RESPIRATORY: Negative Chronic Obstructive Pulmonary Disease (COPD) or Asthma GASTROINTESTINAL: Positive Gastrointestinal Disorders and Obesity; Negative Gastrointestinal Bleed, Hemorrhoids or Gastroesophageal Reflux Disease GENITOURINARY: Positive Genitourinary Disorders; Negative Renal Disease REPRODUCTIVE: Positive Previous Pregnancies MUSCULOSKELETAL: Positive Musculoskeletal Disorders ENDOCRINE: Positive Endocrine Disorders; Negative Diabetes Mellitus Type 1, Diabetes Mellitus Type 2, Hyperthyroidism or Hypothyroidism HEMATOLOGIC: Negative Blood Disorders or Sickle Cell Disease OTHER HISTORY: Negative Autoimmune Disease, Blood Transfusions, Blood Transfusion Reaction, Anesthesia Reactions, MRSA, Clostridium Difficile or Cancer Family History FAMILY HISTORY: Negative Family Respiratory Disorders, Family Cardiac Disorders, Family Gastrointestinal Problems, Family Cancer, Family Surgery or Family Anesthesia Reaction Surgical History SURGICAL: Positive Hysterectomy and Section Social History SMOKING STATUS: Never smoker SECOND HAND EXPOSURE: No SUBSTANCE USE: does not use ED Exam General Limitations: Present no limitations General appearance: Present alert and in no apparent distress Head Head exam: Present atraumatic, normocephalic and normal inspection Eye Eye exam: Present normal appearance, PERRL and EOMI; Absent conjunctival injection ENT ENT exam: Present normal exam, normal oropharynx and mucous membranes moist Neck Neck exam: Present normal inspection, full ROM and trachea midline; Absent tenderness, meningismus or lymphadenopathy Chest Chest inspection: Present normal inspection and symmetric chest wall rise Respiratory Respiratory exam: Present normal lung sounds bilaterally; Absent respiratory distress Cardiovascular Cardiovascular exam: Present regular rate, normal rhythm and normal heart sounds Abdominal Exam Abdominal exam: Present soft and normal bowel sounds; Absent distention, tenderness, guarding, rebound or rigidity Extremities Exam Extremities exam: Present normal inspection and full ROM Back Exam Back exam: Present normal inspection and full ROM Neurological Exam Neurological exam: Present alert, oriented X3, CN II-XII intact, normal gait and reflexes normal; Absent motor sensory deficit Psychiatric Psychiatric exam: Present normal affect and normal mood Skin Skin exam: Present warm, dry, intact and normal color Course Quality Measures none Orders Category Date Time Status LORazepam [Ativan] Med 01/13/25 06:18 Discontinued 0.5 mg PO X1 ONE Vital Signs Vital signs: Vital Signs Temperature 98.2 F 01/13/25 06:03 Pulse Rate 70 01/13/25 06:03 Respiratory Rate 18 01/13/25 06:03 Blood Pressure 131/92 H 01/13/25 06:03 Pulse Oximetry (%) 97 01/13/25 06:03 Oxygen Delivery Method Room Air 01/13/25 06:03 O2 saturation 97% room air within normal limits Discharge Plan Plan Patient Disposition: HOME (Self Care) Discharge Disposition comment: Stable Prescriptions/Referrals Prescriptions/Med Rec: New lorazepam [Ativan] 0.5 mg tablet 0.5 mg PO BID PRN (Reason: anxiety) Qty: 10 0RF No Action sumatriptan succinate [Imitrex] 50 mg tablet See Rx Instructions .ROUTE .COMPLEX Qty: 10 0RF Rx Instructions: take 1 tab at onset of headache; if no relief may repeat 1 tab after at least 2 hrs; max = 4 tabs/24 hr lidocaine 5 % ointment 1 applic topical BID PRN (Reason: pain) Qty: 30 0RF loratadine [Claritin] 10 mg Tablet 10 mg PO QDAY PRN (Reason: Allergic Symptoms) Problem List Clinical Impression: Headache, Anxiety Patient/Caregiver Discharge Instructions Education Materials: Self-Care for Headaches Additional Instructions: Please follow up with your primary care doctor in the next 24-48hrs for any worsening symptoms return here immediately Print Language: Slovak Stand Alone Forms: [employer] Info., Patient Portal Info Letter PA/BRASS RECLAIMER Supervising Physician PA/BRASS RECLAIMER Supervising Physician: Dr. sierra MDM Narrative MDM hospital course (for use when minimal MDM required): 44-year-old female presents to the emergency department today stating she been having difficulty sleeping patient reports that she has been anxious and she reports has been depressed as her brother went back to [place]. Patient was here 2 days ago patient had a full workup which was unremarkable I do not believe that repeat workup indicated I believe this is more of a psychiatric issue at this time. Clinically patient is very well-appearing does not appear ill or toxic patient reports no suicidal or homicidal ideations patient is here with her daughter When asked the patient about her brother she was tearful Patient reports her primary concern is she has not been able to sleep Patient has normal neurological exam patient walks steady gait pupils are normal no neck pain patient has full range of motion of the neck Patient given a dose of Ativan here and discharged home with short course of Ativan Explained to the patient should symptoms persist or worsen I would like her to return for evaluation Clinical Information Provided by: patient Medical Records reviewed [facility] Meds/Rx considered, not ordered describe: Given Labs/Rad/Tests considered, not ordered None Chronic Illness/Social Conditions which may negatively complicate care or outcome(s)-explain: None or not applicable EKG EKG not done Labs Labs: none Imaging Imaging interpretation: none Medication Administration(s) Medication Administration History Discontinued Medications Lorazepam (Lorazepam 0.5 Mg Tablet) 0.5 mg PO X1 ONE Stop: 01/13/25 06:19 Last Admin: 01/13/25 06:26 Dose: 0.5 mg Documented By: CVL Given Diagnosis Differential Diagnosis ED Complaint MDM: Anxiety, depression, stress reaction
[2025-01-13 06:35] VITALS: RESP 16
== END 2025-01-13 06:46 | disposition home or self-care (01) ==
LOC: SERX 06:38
PROVIDERS: Emergency Provider Emergency Medicine; PCP Family Medicine
DX: F41.9 Anxiety disorder, unspecified (principal); R51.9 Headache, unspecified
CPT/HCPCS: 99281; A9270